=== PATIENT | female | born 1950 | race Caucasian/White ===

== ENCOUNTER 2016-07-28 09:26 | Inpatient (IN) | payer MEDICARE, MEDICAID ==
[~2016-07-28] VITALS: Ht 160 cm; Wt 61.1 kg
[2016-07-28] VITALS (18 sets, daily range): BP systolic 58–122; BP diastolic 41–76; PULSE 83–104; RESP 7–22; O2SAT 96–100
[~2016-07-28 09:26] MED LIST: ACET325T51 PO; ALEN70TA2 PO; AMLO5TAB2 PO; ASCO250T7 PO; CALC-460 PO; CARI350T PO; CEFU500T PO; CEPH500C PO; DOCU-41 PO; DULO60CA61 PO; ERGO2000 PO; FERR-83 PO; Gabapentin PO; HYDR-3797 PO; HYDR2TAB27 PO; METO25TA6 PO; MTH10T PO; OXYB5TAB PO; OXYC10TA8 PO; OXYC5TAB72 PO; SENN-133 PO; SIMV10TA4 PO; TRAZ-118 PO
--- NOTE | 2016-07-28 11:00 | NUR ---
admitted to 1010 66 yr old female c/o right flank pain radiating over abd. VSS, does not appear to be in distress but asking for pain meds. afebrile
[2016-07-28] MEDS ORDERED: fentaNYL-PF 50 mCg/mL 2 mL Inj ONE (11:42)
[2016-07-28] MEDS ORDERED: D5 0.45% NaCl + KCl 20 mEq/L 1,000 ML IV SCH (11:42)
[2016-07-28] MEDS ORDERED: Propofol 10,000 mCg/mL 20 mL Inj ONE (11:42)
[2016-07-28] MEDS ORDERED: Phenylephrine/NS-PF 100 mCg/mL 5 mL Syringe IVPUSH ONE (11:42)
[2016-07-28] MEDS ORDERED: Ondansetron 2 mg/mL 2 mL Inj ONE (11:42)
[2016-07-28] MEDS: Heparin 5,000 Unit/mL Inj SUBQ SCH ×2 (11:45→12:21)
[2016-07-28] MEDS ORDERED: Alum-Mag Hydrox-Simeth 30 mL Suspension PO PRN (11:45)
[2016-07-28] MEDS ORDERED: Polyethylene Glycol (PEG) 17 Gm Powder PO PRN (11:45)
[2016-07-28] MEDS ORDERED: Ondansetron 2 mg/mL 2 mL Inj IVPUSH PRN ×2 (11:45→15:45)
[2016-07-28] MEDS ORDERED: Morphine PCA 1 mg/mL 30 mL Inj IV PRN (12:10)
--- NOTE | 2016-07-28 13:29 | DRSVH ---
PROCEDURE: X-RAY CHEST ONE VIEW, PORTABLE ([id number]) INDICATIONS: PRE-OPERATIVE, needs ureteral stents TECHNIQUE: One view of the chest was acquired. COMPARISON: [facility], CR, XR CHEST 1VW (PORTABLE), 12/27/2015, 19:31. FINDINGS: Surgical changes and devices: None. Lungs and pleura: No pleural effusions or pneumothorax. Lungs are clear. Mediastinum: Mediastinal contours appear normal. Heart size is enlarged. Bones and chest wall: No suspicious bony lesions. Overlying soft tissues appear unremarkable. IMPRESSION: Cardiomegaly. No acute pulmonary findings. Dictated by: Rola Womack M.D. on 07/28/2016 at 13:27 Approved by: Rola Womack M.D. on 07/28/2016 at 13:27
[2016-07-28] MEDS ORDERED: 0.9% Sodium Chloride 1,000 ML IV SCH (14:05)
[2016-07-28] MEDS: 0.9% Sodium Chloride 1,000 ML IV SCH (14:12)
--- NOTE | 2016-07-28 15:00 | NUR ---
to OR for Cystoscopy with stents with Dr Car
[2016-07-28 15:08] LABS: BASOPHILS % (AUTO) 0.4 % (0-3); EOSINOPHILS % (AUTO) 0.7 % (0-5); MONOCYTES % (AUTO) 4.7 % (4-12); Mean Corpuscular Hemoglobin 30.4 pg (27.0-35.0); NEUTROPHILS % (AUTO) 88.5 % (40-74); Platelet Count 577 bil/L (150-400)
[2016-07-28 15:28] LABS: Magnesium 2.3 mg/dL (1.6-2.6)
[2016-07-28] MEDS ORDERED: Lactated Ringer's 500 ML IV PRN (15:44)
[2016-07-28] MEDS ORDERED: Lactated Ringer's 1,000 ML IV SCH (15:44)
--- NOTE | 2016-07-28 15:44 | PCM.HPANE ---
Patient Data Date of Service: July 28, 2016 Surgeon Admitting Provider:Aparna Ruffin DO Attending Provider:Abdi Hernandez Primary Care Physician:Rob Reeves MD Other Provider: Reason for Visit Uti/Acute Kidney Injury/Kidney Stone Ht/WT & BMI Height (Feet): 5 Height (Inches): 3.00 Weight (Kilograms): 61.100 Body Mass Index 23.87 Allergies Coded Allergies: carbamazepine (Verified Allergy, Unknown, 03/13/16) Past Anesthesia History Anesthesia History: Denies:: Anesthesia Reactions Diabetes History Hx Diabetes?: No MRSA MRSA: Yes (Distant history of) Medications Hypertension Medication: No Home Meds Incl Beta Criss: No Reported Medications Ascorbic Acid (Vitamin C)250 Mg Tab.yidv085 Mg PO TID Supplement 30 Days Ref 0 12/28/15 Trazodone 100 Mg Pbcirg450 Mg PO HS Insomnia Ref 0 12/28/15 Sennosides (Senna)8.6 Mg Tablet8.6 Mg PO DAILY 12/28/15 Duloxetine 60 Mg Capsule.dr2 Capsule PO DAILY Fibromyalgia Ref 0 12/28/15 Oxybutynin Chloride ER 5 Mg Tab.er.245 Mg PO DAILY URINARY FREQUENCY Ref 0 12/28/15 Ergocalciferol (Vitamin D2) (Vitamin D2)2,000 Unit Tablet2,000 Unit PO DAILY Supplement 12/28/15 Calcium Citrate/Vitamin D3 (Calcium Citrate with D Tablet)1 Each Tablet1 Each PO BID supplement 12/28/15 Acetaminophen 325 Mg Tablet2 Tab PO Q6 PRN For Mild Pain or Fever Ref 0 12/28/15 Methadone 10 Mg Tab10 Mg PO BID PAIN Ref 0 12/27/15 [Gabapentin] 1200 mg No Conflict Check1 Capsule PO TID Pain r/t Fibromyalgia 12/27/15 oxyCODONE 10 Mg Xdmezi56 Mg PO HS PRN For Pain Ref 0 12/27/15 Alendronate Sodium (Fosamax)70 Mg Ymhpti81 Mg PO QW 05/28/14 oxyCODONE 5 Mg Tablet5 Mg PO Q4H PRN For Pain 05/28/14 Ferrous Sulfate 325 Mg Utrdup368 Mg PO BID 05/28/14 Carisoprodol (Soma)350 Mg Jvkzso253 Mg PO Q6 PRN For Pain 05/28/14 Hydroxyzine Pamoate (HydrOXYzine Pamoate)25 Mg Radlpvc65 Mg PO HS 05/28/14 Simvastatin 10 Mg Msmjsu18 Mg PO DAILY 05/28/14 Discontinued Reported Medications Docusate Sodium (Colace)100 Mg Ebclmwf742-887 Mg PO DAILY PRN For Constipation Ref 0 12/28/15 Amlodipine 5 Mg Tablet5 Mg PO DAILY HIGH BLOOD PRESSURE 05/28/14 Metoprolol Tartrate 25 Mg Wrkchi36 Mg PO BID 05/28/14 Discontinued Scripts Cephalexin 500 Mg Yixeadi655 Mg PO TID #30 CAPSULE Ref 0 Prov:Otto Farris MD 03/14/16 Cefuroxime Axetil (Ceftin)500 Mg Pqbaxx046 Mg PO BID #4 TABLET Prov:Abel Causey 12/30/15 Hydromorphone (Dilaudid)2 Mg Tablet0.5 Mg PO Q6 PRN For Severe Pain #20 TABLET Prov:Abel Causey 12/30/15 History History of ENT Problems?: No HEENT History: Denies:: Cataracts Dysphagia Glaucoma Sinus Problem Denture Type: None Teeth Condition: Within Normal Limits Hx of Heart Problems?: Yes Cardiovascular History: Positive for:: Hypertension Denies:: Cardiac Surgery Chest Pain Congestive Heart Failure Edema Heart Murmur Irregular Heartbeat Pacemaker Thrombophlebitis Hx of Respiratory Problem?: No Respiratory History: Positive for:: Pneumonia (several times has PNA) Denies:: Asthma COPD Emphysema Oxygen Administration Tuberculosis Use of C-PAP Machine Hx Neurologic Problems?: Yes Neurological History: Positive for:: Dementia (Short term mem loss) Dizziness Headaches (Past history of migraines) Denies:: Alzheimer's Disease CVA Parkinson's Disease Seizures Hx of GI Problems?: Yes Hx of Problems?: Yes Genitourinary History: Positive for:: Kidney Stones (hx left Kidney stones, currently right kidney stone) Urinary Tract Infection Denies:: HX of Hemodialysis HX of Peritoneal Dialysis: No Female Hx: Denies:: Currently (hysterectomy) Endometriosis Pelvic Inflammatory Problems with Breasts? Skin History: Denies:: History Skin Disorders? Pressure Ulcers Hx Musculoskeletal Problems?: Yes Musculoskeletal History: Positive for:: Back Injury Joint Replacement (L elbow) Musculoskeletal Trauma Hx of Psycho/Social Problems?: Yes Psycho Social History: Positive for:: Anxiety Hx Depression Denies:: Bipolar Disorder Suicide Attempt Hx Surgeries?: Yes (hyst, appy, ) Hx Any Other Health Problems?: Yes Other History: Positive for:: Hospitalization Denies:: Cancer Thyroid Disease History Blood Transfusions: Positive for:: Accept Blood Products? Denies:: Blood Transfuse Reaction Blood Transfusions Hx Diabetes: No Other Pertinent History: Chronic pain/fibromyalgia Hx Alcohol Use: NoHx Substance Use: No Smoking Status: Current Every Day Smoker Have You Smoked inLast 12 mo: Yes Stop/Bang Treated for Sleep Apnea?: No Do You Have a CPAP Machine?: No S-Snoring: Do You Snore Loudly: No T-Tired: feel tired, fatigued: No O-Obsered: Observed not breath: No P-Blood Pressure: treated: Yes B- Body Mass Index > 35 kg/m2: No A- Age over 50: Yes N- Neck Large Circumference: No G- Gender Male: No KWASI Total Score: 1 KWASI Risk Assessment: Low Risk, <3 Yes Risk Assessment Category Category 1A: Patient has history of documented sleep apnea, and HAS NOT received any narcotic, sedative or anesthesia administration during this stay. Category 1B: Patient has history of documented sleep apnea, and HAS received any narcotic , sedative or anesthesia administration during this stay Category 2: Patient has SUSPECTED Obstructive Sleep Apnea, and HAS received any narcotic , sedative or anesthesia administration during this stay. Category 3: Patient has SUSPECTED Obstructive Sleep Apnea and HAS NOT received narcotic, sedative or anesthesia administration during this stay. Category 4: Outpatient in Procedural Areas with known sleep apnea or who screen positive for High Risk via the STOP/BANG questionnaire. Exam Exam Vital Signs Vital Signs Date Time Temp Pulse Resp B/P Pulse Ox O2 Delivery O2 Flow Rate FiO2 07/28/16 10:07 36.6 85 18 119/75 98 Room Air General Appearance: Alert, Oriented X3, Cooperative, No Acute Distress HEENT/AIRWAY: MP 2 Lungs: Clear to Auscultation, Normal Air Movement Heart: Exam Unremarkable, Regular Rate/Rhythm, No Murmurs/Rubs/Gallops Meds/Labs/Diagnostics Admission Meds Current Medications Potassium Chloride/Dextrose/ Sod Cl 1,000 ml @ 100 mls/hr Q10H IV Last administered on 07/28/16t 12:21; Start 07/28/16 at 11:42; Stop 07/28/16 at 14:06; Status DC Sodium Chloride (Normal Saline) 1,000 ml @ 100 mls/hr Q10H IV Last administered on 07/28/16t 14:12; Start 07/28/16 at 14:10 Labs Test 07/28/16 14:57 07/28/16 15:04 White Blood Count 22.4th/mm3 (3.8-10.1) Red Blood Count 3.19mil/mm3 (3.90-5.20) Hemoglobin 9.7g/dL (12.0-15.6) Hematocrit 28.4% (35.0-46.0) Mean Corpuscular Volume 89.0fL (81-100) Mean Corpuscular Hemoglobin 30.4pg (27.0-35.0) Mean Corpuscular Hemoglobin Concent 34.2% (32.0-37.0) Red Cell Distribution Width 17.6% (12.3-15.4) Platelet Count 577bil/L (150-400) Neutrophils (%) (Auto) 88.5% (40-74) Lymphocytes (%) (Auto) 4.1% (14-46) Monocytes (%) (Auto) 4.7% (4-12) Eosinophils (%) (Auto) 0.7% (0-5) Basophils (%) (Auto) 0.4% (0-3) Sodium Level 125mEq/L (134-144) Potassium Level 4.5mEq/L (3.5-5.2) Chloride Level 88mEq/L (97-108) Carbon Dioxide Level 19mmol/L (18-29) Blood Urea Nitrogen 20mg/dL (8-27) Creatinine 1.93mg/dL (0.57-1.00) Estimat Glomerular Filtration Rate 37mL/min (>59) Glucose Level 95mg/dL (60-99) Calcium Level 8.5mg/dL (8.5-10.1) Magnesium Level 2.3mg/dL (1.6-2.6) Total Bilirubin 0.2mg/dL (0.0-1.2) Aspartate Amino Transf (AST/SGOT) 12U/L (0-50) Alanine Aminotransferase (ALT/SGPT) 9U/L (0-32) Alkaline Phosphatase 211U/L (25-165) Total Protein 6.3g/dL (6.4-8.4) Albumin 3.3g/dL (3.4-5.0) Amylase Level 15U/L (28-100) Lipase 5U/L (13-60) Thyroid Stimulating Hormone (TSH) 0.752uIU/mL (0.450-4.500) Plan Impression Patient chart reviewed, patient interviewed and anesthestic plan with risks, benefits, and alternatives discussed, and informed consent obtained. NPO per Anesth. Guidelines: Yes ASA Physical Status: ASA2 Mod Systemic Disease Anesthetic Plan: GA Bene/Risks/Altern/Consents: Yes HP Complete Prior to Induction: Yes Cleve Schaffer MD July 28, 2016 15:44
[2016-07-28] MEDS ORDERED: MetoCLOpramide 5 mg/mL 2 mL Inj IVPUSH PRN (15:45)
[2016-07-28] MEDS ORDERED: hydrALAZINE 20 mg/mL Inj IVPUSH PRN (15:45)
[2016-07-28] MEDS ORDERED: Labetalol 5 mg/mL 4 mL Inj IV PRN (15:45)
[2016-07-28] MEDS ORDERED: fentaNYL-PF 50 mCg/mL 2 mL Inj IVPUSH PRN (15:45)
[2016-07-28] MEDS ORDERED: HYDROmorphone 1 mg/mL Inj IVPUSH PRN (15:45)
[2016-07-28] MEDS ORDERED: Lactated Ringer's 1,000 ML IV ONE (15:45)
[2016-07-28] MEDS: Ertapenem Inj 500 MG in 0.9% Sodium Chloride 50 ML IV SCH ×2 (15:45→16:00)
[2016-07-28] MEDS ORDERED: Phenylephrine 10,000 mCg/mL Inj IVPUSH PRN (15:45)
[2016-07-28 16:05] LABS: OSMOLALITY, URINE 114 mOs/kH2O (250-1200)
[2016-07-28] MEDS: EPHEDrine Sulfate 50 mg/mL Inj IVPUSH PRN ×2 (16:40→16:49)
[2016-07-28] MEDS ORDERED: Phenazopyridine 97.5 mg Tablet PO PRN (16:40)
--- NOTE | 2016-07-28 16:40 | PCM.SURGPO ---
Immediate Operative Note Date of Surgery: July 28, 2016 Pre Operative Diagnosis R ureteral calculus, R hydronephrosis, acute renal failure, sepsis Post Operative Diagnosis R ureteral calculus, R hydronephrosis, acute renal failure, sepsis, R pyonephrosis Procedure Cystoscopy and R ureteral stent placement Surgeon and Ip/Mosaic Technician Surgeon: Darryl Car MD Assistants: None Findings Cystoscopy revealed small mildly edematous and minimally erythematous areas scattered throughout the bladder (consistent with likely cystitis), no bladder tumors or calculi, and B/L ureteral orifices in normal position, with cloudy urine and debris in bladder. Urine drained from R renal collecting system was seen to be whitish, cloudy, and purulent. R hydronephrosis was seen. R ureteral JJ stent was placed. Complications There were no periprocedural complications identified. Surgical Specimen Removed: Yes Specimen sent to Pathology: No Surgical Specimen description: Urine Cx from R kidney sent to micro lab Anesthetic Administered: GA Grafts, Implants: Other (22cm x 6F R ureteral JJ stent (no string), 16F Lopez catheter to straight drainage) Output, Estimated Blood Loss: <5 Blood Admin during surgery: No Additional information Patient to be transferred to [facility] when stable. Recommend continuing broad- spectrum IV Abx and aggressive IVF resuscitation post-op. Patient will need treatment of R ureteral calculus and B/L renal calculi after her infection has completely resolved, which can be done as an outpatient. Darryl Car MD July 28, 2016 16:40
--- NOTE | 2016-07-28 16:43 | PCM.ANEP1 ---
Post Anesthesia Phase 1 PACU Phase 1 Assessment Date of Service: July 28, 2016 Vital Signs 91/51 97 6 100% FM Anesthetic Administered: GA Level of Alertness: Sleeping, hard to arouse Pain: No Nausea or Vomiting: No Cardiovascular Function and Hy: Yes Oxygen Delivery: Simple Mask Lungs: Clear to Auscultation, Normal Air Movement Complications: No Follow up Care: No Patient Instructions Provided: Yes Comments Blood pressure low. Suspect early urosepsis. Giving fluid, temporizing with pressors. Cleve Schaffer MD July 28, 2016 16:43
--- NOTE | 2016-07-28 16:47 | CONS ---
[address] [address] CONSULTATION REPORT PATIENT: PANCHO CRAVEN : 1950 MR#: [id number] ADMIT: 07/28/2016 JOB ID: [id number] DATE OF SERVICE: 07/28/2016 CHIEF COMPLAINT: Right flank and abdominal pain, right ureteral calculus, right hydronephrosis, acute renal failure. HISTORY OF PRESENT ILLNESS: I was asked by hospitalist, Dr. Aparna Ruffin, to evaluate this 66-year-old female for right flank and abdominal pain, right ureteral calculus, right hydronephrosis, and acute renal failure. The patient presented to the [facility] Department early this morning for right flank and right abdominal pain and was noted to be mildly hypotensive with blood pressure 88/66 on presentation to the emergency department, with blood pressure increasing to 116/63 after IV fluid hydration. The patient had laboratory tests significant for acute renal failure with creatinine 2.39, hyponatremia with sodium 122, hypochloremia with chloride of 89, and leukocytosis with white blood cell count 20.4. The patient had a CT scan of abdomen and pelvis, noncontrast, showing nonobstructing multiple bilateral renal calculi, right hydroureteronephrosis, and a 1.6 cm right proximal ureteral calculus, also with distended gallbladder, no gallstones, enlarged common bile duct, and no choledocholithiasis. The patient was transferred here to [facility] this morning under the care of hospitalist, Dr. Ruffin. The patient received a dose of ceftriaxone IV antibiotics at [facility] this morning. Patient presently reports right flank and right abdominal pain. The patient states that she has been having no fever, no chills. No nausea, no vomiting. The patient states she has been having pain over the last two weeks, with pain worsening recently. Patient reports dysuria which started recently, with no gross hematuria, no difficulty voiding. The patient reports significant fatigue. Of note, patient was previously seen by Dr. Kassandra Brothers and Dr. Kylah Humphries. The patient is status post cystoscopy and left ureteral stent placement on December 28, 2015, by Dr. Humphries for left ureteral calculus, left hydronephrosis, bilateral renal calculi, and UTI. Patient subsequently underwent cystoscopy, left ureteroscopy, Holmium laser lithotripsy, basket extraction of calculi fragments, and left ureteral stent change on January 11, 2016, by Dr. Humphries for left ureteral calculus and left renal calculi. Patient was last seen on January 30, 2016, by Dr. Brothers when she underwent cystoscopy and left ureteral stent removal in the office and was doing well postoperatively, with plan for the patient to follow up with Urology physician home care assistant, Ashley Cordova in few months with a KUB x-ray prior the appointment. However, patient did not follow up. Patient reports history of nephrolithiasis prior to 2015 and has had a cystoscopy and ureteral stent placements in the past. PAST MEDICAL HISTORY: Opioid addiction, osteoarthritis, history of T12 compression fracture, hyponatremia, fibromyalgia, chronic peripheral neuropathy, osteoporosis, depression, hypertension, gastroesophageal reflux disease, chronic pain, Raynaud's, endometriosis. PAST SURGICAL HISTORY: Cystoscopy and left ureteral stent placement, as per HPI. Cystoscopy, left ureteroscopy, Holmium laser lithotripsy, basket extraction of calculi fragments , and left ureteral stent placement, as per HPI. Total vaginal hysterectomy. Multiple orthopedic surgeries including right elbow surgeries and multiple left lower extremity surgeries. Appendectomy. MEDICATIONS: Present hospital medications: 1. Ertapenem IV which is being started. 2. Morphine sulfate IV CLAIM AUDITOR. 3. Carisoprodol p.r.n. 4. Maalox Plus p.r.n.. 5. Zofran p.r.n. 6. Senokot p.r.n. 7. MiraLAX p.r.n. 8. Tylenol p.r.n. ALLERGIES: CARBAMAZEPINE. SOCIAL HISTORY: History of smoking, no current alcohol use. Lives [place] [facility] [place]. FAMILY HISTORY: Noncontributory. REVIEW OF SYSTEMS: Constitutional: No fever, no chills. GI: No nausea, no vomiting. PHYSICAL EXAMINATION: Vital signs this morning: Afebrile, temperature 36.6 degrees Celsius. Heart rate 85, respiratory rate 18, BP 119/75. O2 saturation 98% on room air. General: Well-developed, well-nourished female in mild distress secondary to pain, lethargic. HEENT exam: Head normocephalic, atraumatic. Eyes: Extraocular muscles intact. Neck supple. Chest: No use of accessory muscles. Nonlabored respirations. No retractions. Abdomen: Soft, nondistended. Mild right flank tenderness. No palpable masses. No rebound, no guarding. Back: Positive for right costovertebral angle tenderness. Skin: Warm and dry. Neurologic exam: Sensation grossly intact to touch. Normal speech. Psych exam: Alert and oriented x3. Normal mood and affect. LABORATORIES: This morning at [facility], white blood cell count 20.4, hematocrit 26.4, platelets 464. Sodium 122, potassium 4.4, chloride 89, CO2 24, BUN 20, creatinine 2.39, glucose 96. Lactic acid 0.7, which is within normal limits. Laboratories from January 11, 2016: Creatinine normal at 0.87. Microbiology: December 29, 2014: Urine culture negative. December 29, 2015: Urine culture negative. IMAGING: CT scan as per HPI. ASSESSMENT: Obstructing 1.6 cm right proximal ureteral calculus, right hydronephrosis, sepsis, with right flank and right abdominal pain, with leukocytosis with white blood cell count 20.4, acute renal failure with creatinine 2.39, hyponatremia with sodium 122 and hypochloremia with chloride 89. Also with nonobstructing bilateral renal calculi. Risks, benefits, and alternatives of surgery, specifically cystoscopy and right ureteral stent placement, were discussed with patient. All questions were answered. Patient wishes to have surgery as recommended. Patient understands that it is not safe to treat right ureteral calculus at this time secondary to her significant infection. Will plan for treatment of right ureteral calculus and bilateral renal calculi as an outpatient in the future once her infection has completely cleared. PLAN: Recommend continuing IV antibiotics which is Ertapenem, as ordered by hospitalist, Dr. Ruffin. Recommend aggressive IV fluid resuscitation. Continue n.p.o. status. The plan is for surgery, specifically cystoscopy and right ureteral stent placement, today. Recommend following up on urine culture results from [facility]. Agree with IV CLAIM AUDITOR. GI findings on CT scan in the gallbladder and common bile duct to be evaluated by hospitalist and/or comedian industrial automation specialist. As per discussion with comedian industrial automation specialist, Dr. Siddiqi, patient is cleared from a GI standpoint to undergo anesthesia and cystoscopy and right ureteral stent placement. [facility]
--- NOTE | 2016-07-28 17:00 | NUR ---
returned to room 1010 from PACU alert, talking, appears much more comfortable, VSS, afebrile, has aviles draining purelant pink urine
--- NOTE | 2016-07-28 17:18 | DRSVH ---
PROCEDURE: X-RAY RETROGRADE UROGRAPHY INDICATIONS: STONE, RIGHT STENT PLACEMENT TECHNIQUE: 2 intraoperative fluoroscopic images acquired by the Urology service. COMPARISON: None. FINDINGS: Multiple intraoperative fluoroscopic views demonstrate double-J ureteral stent placement in a markedly hydronephrotic kidney. IMPRESSION: Fluoroscopic guidance of double-J ureteral stent placement. Dictated by: Rola Womack M.D. on 07/28/2016 at 17:15 Approved by: Rola Womack M.D. on 07/28/2016 at 17:16
--- NOTE | 2016-07-28 19:58 | CONS ---
[address] [address] CONSULTATION REPORT PATIENT: PANCHO CRAVEN : 1950 MR#: [id number] ADMIT: 07/28/2016 JOB ID: [id number] DATE OF SERVICE: 07/28/2016 REQUESTING PHYSICIAN: Dr. Ruffin. REASON FOR CONSULTATION: Management of hyponatremia and acute kidney injury. CHIEF COMPLAINT: Right flank pain. PRESENT ILLNESS: This is a 66-year-old lady with significant past medical history of chronic opioid use, alcoholism, hypertension, dyslipidemia, fibromyalgia, nephrolithiasis, who was transferred from [facility] for a higher level of care. The patient reported that she has history of congenital abnormality of urinary tract. She had the urological procedure done when she was a little. The patient reports she had history of bilateral nephrolithiasis. Last year in December she had cystoscopy, ureteroscopy, laser lithotripsy, and stent change. The patient stated that she started having right-sided flank pains approximately two weeks prior to the admission. The pain was severe, radiating to the right groin. The patient has been on narcotics for the fibromyalgia and arthritis. She also had history of multiple orthopedic surgeries. The patient lives in [facility]. She was brought to the [facility]. Her initial serum sodium was 122, creatinine of 2.39. CAT scan of the abdomen showed bilateral nephrolithiasis, severe right obstructive uropathy due to 1.1 cm proximal right ureteral calculus, dilated gallbladder. The patient was then transferred to the [facility] for a higher level of care. During my visit the patient remains in the moderate to severe pain. POLITICAL SCIENCE PROFESSOR was started. The patient was evaluated by urologist, Dr. Car. The patient will likely undergo urological procedure today. The repeat BMP here showed sodium of 125, chloride 88, BUN of 20 and creatinine of 1.93. She reports no history of fever, chills. No chest pain. No shortness of breath. No nausea, no vomiting. However, her appetite is poor over the past couple weeks. PAST MEDICAL HISTORY: Depression, fibromyalgia, hypertension, dyslipidemia, bilateral nephrolithiasis status post left ureteral stent placement, multiple orthopedic surgeries involving right elbow surgery and left lower extremity. FAMILY HISTORY: Positive for heart disease and COPD in the family. SOCIAL HISTORY: The patient lives at [facility]. She smokes tobacco. Denies usage of illicit drugs except prescription narcotics. ALLERGIES: CARBAMAZEPINE. MEDICATIONS: 1. Vitamin C. 2. Trazodone. 3. Senna. 4. Duloxetine. 5. Oxybutynin. 6. Vitamin D2. 7. Calcium citrate with vitamin D3. 8. Tylenol. 9. Methadone. 10. Gabapentin. 11. Oxycodone. 12. Alendronate. 13. Ferrous sulfate. 14. Soma. 15. Hydroxyzine. 16. Simvastatin. Vitals: Temperature 36.6, pulse 85, respiratory rate 18, blood pressure 119/75, O2 sat 98% on room air. General appearance: Awake, alert, chronically ill looking, not in acute distress, in moderate pain. HEENT: Mild pallor. No jaundice. No JVD. No lymphadenopathy. No thyroid enlargement. Dry mucous membranes. PERRLA. Heart: Regular rhythm. Normal S1, S2. No murmurs, rubs, or gallops. Lungs: Clear to auscultation bilaterally. No wheezing. No rhonchi. Abdomen soft, active bowel sounds. Nontender. Nondistended. No hepatosplenomegaly. Extremities: No edema, cyanosis, or clubbing of fingers. : Positive right CVA tenderness. LABORATORY: WBC 22.4, hemoglobin 9.7, sodium 125, potassium 4.5, chloride 88, bicarb 19, BUN 20, creatinine 1.93. Albumin 3.3. Amylase 15, lipase 5. ASSESSMENT: 1. Acute kidney injury likely due to obstructive uropathy. CAT scan showed severe right hydronephrosis, 1.1 cm at the right ureter. Urology is consulted. 2. Hyponatremia in the setting of acute kidney injury. The etiology is due to kidney failure and possibly poor oral intake. The patient has had poor appetite over the past two weeks. Recommend normal saline at 100 cc/hour. 3. Will also order a serum osmo, urine osmo, and urine sodium. 4. Chronic narcotics use. 5. Fibromyalgia. 6. Depression. 7. Hypertension. Plan: Start NS 100 ml/hr. Avoid nephrotoxins. Adjust medication per eGFR. Repeat BMP at 10 pm. Pending urological procedure today. Thank you for the consultation. We will monitor along with you. [facility]
--- NOTE | 2016-07-28 21:51 | PCM.HPMED ---
Subjective Date of Service July 28, 2016 Primary Provider: Admitting Physician: Aparna Ruffin DO Primary Care Physician: Rob Reeves MD Attending Physician: Abdi Hernandez Admit Status: Direct Admit Chief Complaint: Abdominal pain, ureterolithiasis, choledocholithiasis, hypernatremia, acute renal failure, ileus or enterocolitis History of Present Illness: This is a 66-year-old pleasant female with past medical history of chronic pain , chronic hyponatremia, chronic alcoholism from which she has recovered, anemia , depression, fibromyalgia, several bone fractures secondary to fall, Pa's , hyperlipidemia, hypertension, insomnia is presenting as a direct admit from [facility]. Patient states that she has been ill for about a week to 2 weeks at her [facility] (. She is under the care of Drs. Pike ) states that she has been having runny stools, abdominal pain that started 10 that is apparently in the right flank and sometimes spreads across to the abdomen and nausea for a week. She states that she has no hematochezia or hematemesis. She states that she uses a walker sometimes she walks sometimes she uses a cane as needed she had several colonoscopies as her father had of colon cancer age 52, she says she herself had some colon polyps removed at her last colonoscopy, which was 4-5 years ago. she thinks her stool is runny and black her last bowel movement at that [facility] prior to arrival here. Lab work at [facility] showed elevated white count 20.4 hemoglobin of 9.2 sodium 122 BUN 20 creatinine 2.39 GFR is 21 her alkaline phosphatase is elevated however her other LFT and lipase are within normal CTA of abdominopelvic without showed multiple stones, 1.1 cm ureteral stone that at right ureteral proximally she is also noted to have distended gallbladder without stones, choledocholithiasis, CBD dilation. She was was noted to have abdominal ileus. Troponin was negative and EKG showed nonspecific abnormalities. Urine showed concern for infection. Urologist Dr. Car was contacted prior to her arrival from [facility]. Allergies Coded Allergies: carbamazepine (Verified Allergy, Unknown, 03/13/16) PMH Chronic pain, chronic hyponatremia, chronic alcoholism from which she has recovered, anemia, depression, fibromyalgia, several bone fractures secondary to fall, Pa's, hyperlipidemia, hypertension, insomnia Surgical History Several surgical repairs for fractures, right ureteral stent in [place] when she was 4 years old Family History Mother, colon COPD, heart disease Data: Heart disease, colon cancer at age 53 Social History Hx Alcohol Use: Yes Hx Substance Use: No Hx Tobacco Use: Yes (former smoker, she said she used to smoke half-pack per day up until 1-2 years ago when she quit) Smoking Status: Current Every Day Smoker Living Arrangement: [facility] Exam Vital Signs Vital Sign - Last Date Time Temp Pulse Resp B/P Pulse Ox O2 Delivery O2 Flow Rate FiO2 07/28/16 10:07 36.6 85 18 119/75 98 Room Air Exam General: NAD, laying in bed, some what can appearing HEENT: NCAT, Eyes: Sublimity conjunctivae. No ptosis, PERRL Neck: No masses, trachea midline, no thyromegaly Lungs: CTA with normal respiratory effort, no crackles or wheezes CV: RRR, soft systolic murmur GI: Soft, flat with no hepatosplenomegaly. She states that she has right flank pain and diffuse abdominal pain. She rates her right flank pain as the highest followed by pain over her epigastrium MSK: Normal gait and station, no digital cyanosis, weaker left lower extremity Skin: Warm and dry. No rash, lesions or ulcers Psych: A&O X3, with appropriate affect Lab and Diagnostics Labs Laboratory Tests Test 07/28/16 14:57 07/28/16 15:04 White Blood Count 22.4th/mm3 (3.8-10.1) Red Blood Count 3.19mil/mm3 (3.90-5.20) Hemoglobin 9.7g/dL (12.0-15.6) Hematocrit 28.4% (35.0-46.0) Mean Corpuscular Volume 89.0fL (81-100) Mean Corpuscular Hemoglobin 30.4pg (27.0-35.0) Mean Corpuscular Hemoglobin Concent 34.2% (32.0-37.0) Red Cell Distribution Width 17.6% (12.3-15.4) Platelet Count 577bil/L (150-400) Neutrophils (%) (Auto) 88.5% (40-74) Lymphocytes (%) (Auto) 4.1% (14-46) Monocytes (%) (Auto) 4.7% (4-12) Eosinophils (%) (Auto) 0.7% (0-5) Basophils (%) (Auto) 0.4% (0-3) Sodium Level 125mEq/L (134-144) Potassium Level 4.5mEq/L (3.5-5.2) Chloride Level 88mEq/L (97-108) Carbon Dioxide Level 19mmol/L (18-29) Blood Urea Nitrogen 20mg/dL (8-27) Creatinine 1.93mg/dL (0.57-1.00) Estimat Glomerular Filtration Rate 37mL/min (>59) Glucose Level 95mg/dL (60-99) Calcium Level 8.5mg/dL (8.5-10.1) Magnesium Level 2.3mg/dL (1.6-2.6) Total Bilirubin 0.2mg/dL (0.0-1.2) Aspartate Amino Transf (AST/SGOT) 12U/L (0-50) Alanine Aminotransferase (ALT/SGPT) 9U/L (0-32) Alkaline Phosphatase 211U/L (25-165) Total Protein 6.3g/dL (6.4-8.4) Albumin 3.3g/dL (3.4-5.0) Amylase Level 15U/L (28-100) Lipase 5U/L (13-60) Thyroid Stimulating Hormone (TSH) 0.752uIU/mL (0.450-4.500) Urine Osmolality 114mOs/kH2O (250-1200) Urine Random Sodium 13mEq/L Osmolality 268 (275-300) Microbiology 07/28/16 Blood Culture, Received Pending Assessment & Plan This is a 66-year-old female with chronic pain (for which she is on methadone, oxycodone, Soma) presenting with multiple problems from an outside hospital. It appears that her ureteral stone may be causing her acute renal injury, though her choledocholithiasis cannot be ignored. Unclear why she is hyponatremic could be due to chronic alcohol abuse versus poor nutrition among other reasons. Leukocytosis could be secondary to UTI and pyelonephritis. Assessment #1 ureterolithiasis, present on admission -- Dr. Car is contacted and he is aware. Plans to take patient to OR this afternoon for a stent -- Hydrate with normal saline 100 mL per hour per nephrology -- The appreciated urology consultation Assessment #2 acute kidney injury: Appears to be postrenal obstruction versus dehydration, present on admission -- Nephrology is consulted -- They agree with need for stent placement -- Normal saline 100 mL/h Assessment #3 hyponatremia, likely chronic worsened acutely: Likely due to nutrition versus dehydration, present on admission -- Follow-up lab here showed sodium levels of 125, follow-up lab at midnight is ordered -- Urine sodium, urine osmolality, serum osmolality, TSH, cortisol, urine sodium -- Nephrology consult: The appreciate their recommendations Assessment #4 choledocholithiasis: Present admission, present on admission -- MRCP is ordered., We have no ERCP support this week end -- GI specialist Dr. donahue contacted, he is aware we will see the patient tomorrow -- Continue hydration, clear liquid diet -- She may need an ERCP, related transfer -- Start her on Invanz renally dosed -- CBC, CMP daily, lipase daily Assessment #5 Ileus or enterocolitis, present on admission: Likely due to pain medications -- Nothing by mouth diet -- Control nausea Assessment #6 chronic pain:, Chronic -- Patient is put on a morphine pump as cannot do by mouth pain medications -- She can have Soma however, because we do not have this on our formulary Assessment #7 hypertension, chronic -- She has no home meds -- We will continue to monitor Assessment #8 hyperlipidemia, chronic -- Continue home medication Zocor Assessment #9 osteoporosis, chronic -- Continue medication Fosamax CODE STATUS: Full code Alternate decision-maker: Avila Brown [phone] Pain Evaluation: Adequate Pain Control VTE Prophylaxis: Sub-Q Heparin (Unfractionated) Resuscitation Status: CPR: Attempt Resuscitation Time spent One hour Aparna Ruffin DO July 28, 2016 13:49
[2016-07-29] VITALS (8 sets, daily range): BP systolic 98–115; BP diastolic 62–69; PULSE 102–110; RESP 14–20; O2SAT 94–100
[2016-07-29] MEDS: 0.9% Sodium Chloride 1,000 ML IV SCH ×3 (03:11→14:23)
--- NOTE | 2016-07-29 03:37 | NUR ---
Pain Pt. is on AGILE COACH morphine. Education given on AGILE COACH pump. Pt. verbalized understanding. Will continue to monitor.
[2016-07-29 05:18] LABS: Mean Corpuscular Hemoglobin 30.6 pg (27.0-35.0); Mean Corpuscular Volume 89.8 fL (81-100)
[2016-07-29] MEDS ORDERED: Ertapenem Inj 500 MG in 0.9% Sodium Chloride 50 ML IV SCH (08:30)
[2016-07-29] MEDS ORDERED: BISA10SU61 RC (09:10)
[2016-07-29] MEDS ORDERED: HYDR25CA PO (09:10)
[2016-07-29] MEDS ORDERED: NA P133E23 RC (09:10)
[2016-07-29] MEDS ORDERED: DOCU-41 PO (09:10)
[2016-07-29] MEDS ORDERED: POLY17PO6 PO (09:10)
[2016-07-29] MEDS ORDERED: CHLO15MO3 MM (09:10)
[2016-07-29] MEDS ORDERED: DEXT1DRO8 BOTH_EYES (09:10)
--- NOTE | 2016-07-29 11:08 | PCM.CHPMED ---
Subjective Date of Service: July 29, 2016 Primary Physician: Admitting Physician: Aparna Guzman DO Primary Care Physician: Rob Reeves MD Attending Physician: Abdi Hernandez Chief Complaint: Chief Complaint: Abdominal pain with ureterolithiasis History of Present Illness: 66-year-old female with anemia, depression, fibromyalgia, Raynaud's, hypertension, chronic pain, chronic hyponatremia, and numerous bone fractures who presented from [facility] due to illness for the past 2 weeks at [facility]. She states that she been having runny stools, bowel pain that localizes more to the right flank with some radiation across the abdomen, as well as nausea for the past week. She denies any hematochezia or hematemesis. At [facility] patient had an elevated alkaline phosphatase and liver function and lipase were within normal limits. CTA revealed a ureteral stone 1.1 cm as well as numerous other stones, as well as a distended gallbladder without identifiable stones, however choledocholithiasis was seen along with common bile duct dilation. Patient underwent intervention with Dr. Car who removed the stone from the ureter. Patient states that she feels much much better since the intervention. Patient states that her right upper quadrant is still painful and currently she does not have much of an appetite. Review of systems negative. Of note, patient does have a history of colon cancer with her mother reporting colon cancer age 52. GI was asked to consult due to possible choledocholithiasis and common bile duct dilation. Review of Systems: See history of present illness PMH Past Medical History Chronic pain, chronic hyponatremia, chronic alcoholism from which she has recovered, anemia, depression, fibromyalgia, several bone fractures secondary to fall, Pa's, hyperlipidemia, hypertension, insomnia Surgical History Several surgical repairs for fractures, right ureteral stent in [place] when she was 4 years old Allergies: Coded Allergies: carbamazepine (Verified Allergy, Unknown, 03/13/16) Family History Family History Mother, colon COPD, heart disease Data: Heart disease, colon cancer at age 52 Social History Hx Alcohol Use: YesHx Substance Use: NoHx Tobacco Use: Yes (former smoker, she said she used to smoke half-pack per day up until 1-2 years ago when she quit) Smoking Status: Current Every Day Smoker Living Arrangement: Longterm Facility Exam Vital Signs Vital Sign - Last Date Time Temp Pulse Resp B/P Pulse Ox O2 Delivery O2 Flow Rate FiO2 07/29/16 08:35 16 99 07/29/16 06:40 36.4 106 107/62 Room Air 07/28/16 16:45 10 Intake and Output 07/28/16 07/28/16 07/29/16 Cumulative From/Thru 15:00 23:00 07:00 07/28/16 15:22 - 07/29/16 05:05 Intake Total 750 ml 1055 ml 1805 ml Output Total 405 ml 405 ml Balance 345 ml 1055 ml 1400 ml Intake Oral 0 ml 0 ml IV Total 750 ml 1055 ml 1805 ml Output Urine Total 400 ml 400 ml Estimated Blood Loss 5 ml 5 ml # Voids 1 1 Additional Information: Gen.: Patient awake and alert and in no acute distress HEENT; neck is supple Cardio: Regular rate and rhythm Respiratory: CTA bilaterally Abdomen: Soft, pain with a positive Richardson sign of the right upper quadrant; patient also has nausea on abdominal palpation. No guarding rebound or firmness noted. Pt has bowel sounds. Skin: Warm and dry no rashes Psych: Appropriate mood and affect Lab and Diagnostics Result Diagram: 07/29/16 0500 07/29/16 0500 Assessment & Plan Assessment Problem list: Probable choledocholithiasis with enlarged gallbladder and common bile duct AKA secondary to obstructive uropathy status post intervention for uterine lithiasis Cystitis Assessment/plan We recommend the patient undergo repeat of lipase as well as obtaining an MRCP for evaluation of the common bile duct stone with abd pain. Abd pain could be due to the stone but with lipase elevation and dilated ducts is concerning. Patient will also do well to have a CT of the abdomen with contrast per evaluation of elevated lipase that is trending up today. In the meantime patient should receive fluid. If the MRCP comes back as positive for choledocholithiasis we recommend emergent transfer for intervention as we are unable to do this here at this time. The patient still here we can consider additional diagnostics. I have seen and examined the patient with the resident and agree with above. Thank you for allowing us to participate in the care of this patient Addendum: MRCP shows Enlarged common bile duct with mild intrahepatic biliary dilatation and enlargement of the gallbladder (no cholelithiasis). This appearance is nonspecific, but may be seen in the setting of acute or chronic biliary obstruction and clinical correlation is recommended. 2. 6 mm filling defect within the common bile duct is only apparent on a few imaging sequences and may be related to flow artifact. However, choledocholithiasis cannot be excluded. The need for further evaluation utilizing ERCP may be determined clinically. Findings discussed with the hospitalist service Dr Guzman and receommended immediate transfer to [facility] facility [facility] in light of lipase elevation. Problems: Pain Evaluation: Adequate Pain Control VTE Prophylaxis: Sub-Q Heparin (Unfractionated) Resuscitation Status: CPR: Attempt Resuscitation Eric Ernandez DO July 29, 2016 11:08 Rudolph Siddiqi MD July 29, 2016 14:12
--- NOTE | 2016-07-29 11:46 | PCM.PNSURG ---
Subjective Date of Service: July 29, 2016 Date of Service: July 29, 2016 Subjective: Patient reports improved R flank and R abdominal pain, no nausea, no vomiting, improved fatigue. Objective Vital Sign- Last 8 Hours Date Time Temp Pulse Resp B/P Pulse Ox O2 Delivery O2 Flow Rate FiO2 07/29/16 08:35 16 99 07/29/16 06:40 36.4 106 20 107/62 100 Room Air 07/29/16 05:06 16 94 Intake and Output- Last 8 Hour 07/29/16 Cumulative From/Thru 07:00 07/28/16 15:22 - 07/29/16 05:05 Intake Total 1055 ml 1805 ml Output Total 405 ml Balance 1055 ml 1400 ml Intake Oral 0 ml IV Total 1055 ml 1805 ml Output Urine Total 400 ml Estimated Blood Loss 5 ml # Voids 1 Lopez catheter urine output: 1100ml last 8hr. shift General: Alert, Oriented X3, Cooperative, No Acute Distress Neck: Supple Lungs: Normal Air Movement Abdomen: Soft, Non-distended, Other (mild R flank and R abdominal tenderness, no rebound or guarding) Neuro: Normal Speech, Sensation Intact Catheters: Urethral 2 Way Lopez (in place, draining clear yellow urine) Result Diagram: 07/29/16 0500 07/29/16 0500 Lab & Micro Results: 07/28/16: urine Cx (intra-op, from R kidney) pending; blood Cx pending Assessment & Plan Impression R ureteral calculus, B/L renal calculi, R hydronephrosis, and sepsis, POD #1 s/ p cystoscopy and R ureteral stent placement, afebrile, with resolved hypotension and mild tachycardia, with labs this AM showing WBC mildly decreased to 20.9, Cr decreased to 1.74, Na increased to 130, and Cl increased to 95, with improved pain, with good urine output Problems: Plan Recommend continuing broad-spectrum IV Abx and IVF hydration Continue Lopez catheter to straight drainage for now (Lopez catheter likely can be removed tomorrow) Recommend following up on urine culture results from [facility] F/U urine Cx and blood Cx Patient will need treatment of R ureteral calculus and B/L renal calculi after her infection has completely resolved, which can be done as an outpatient Case discussed with hospitalist Dr. Ruffin VTE Prophylaxis: Sub-Q Heparin (Unfractionated) Resuscitation Status: CPR: Attempt Resuscitation Darryl Car MD July 29, 2016 11:46 VTE Prophylaxis: Sub-Q Heparin (Unfractionated) Resuscitation Status: CPR: Attempt Resuscitation Darryl Car MD July 29, 2016 11:46
[2016-07-29] MEDS ORDERED: Meropenem Inj 1,000 MG in IV Premix 1 EACH IV SCH (12:45)
--- NOTE | 2016-07-29 13:38 | DRSVH ---
PROCEDURE: MR ABDOMEN MRCP INDICATIONS: choledocholithiasis on ct TECHNIQUE: Coronal HASTE through the abdomen, axial 2-D FLASH in- and [id number], and breath-hold T2 FSE with fat saturation through the biliary system and pancreas. Oblique coronal and axial thin-slice HASTE, radial thick-slab HASTE centered on the extrahepatic bile ducts. Intravenous secretin: Not requested. COMPARISON: [facility], CT, CT ABD PELVIS WO CON, 07/28/2016, 6:16. FINDINGS: Image quality: Diagnostic. Liver: The liver is normal in size. No focal liver lesions are identified. No significant signal d ropout is evident on the opposed phase images compared to the in phase images to suggest hepatic stea tosis. No definite liver lesions are evident. Mild intrahepatic biliary dilatation is present. Chang w-voids within the portal vein and the hepatic veins suggest that these vessels are patent. The gall bladder is enlarged. No definite gallstones are appreciated within the gallbladder. The common bile duct is enlarged and measures up to approximately 10 mm in diameter. Within the region of the priya hepatis of the common bile duct, there is a 7 mm filling defect identified. However, this filling d efect is not visualized on all of the imaging sequences and could potentially be related to flow thao fact or motion artifact. The distal aspect of the common bile duct is otherwise unremarkable. Other solid organs: The main pancreatic duct is slightly enlarged and measures up to approximately 4 mm in diameter. Mild edema about the pancreas appears to be present. However, the pancreas is not w ell evaluated on this exam. There continues to be hydronephrosis of the right kidney. However, the degree of hydronephrosis appears to be less prominent on the current study compared to the prior exam . The patient's known right proximal ureteral calculus is not evident, which may be related to diffe rences in imaging modalities. The adrenals are not enlarged. The spleen is normal in size. Nodes and vessels: No retroperitoneal or mesenteric adenopathy by size criteria. Aorta and inferior vena cava are normal in size. Atherosclerotic irregularity of the abdominal aorta is present. Bowel and peritoneum: There is a small hiatal hernia. Unenhanced bowel loops are normal in caliber. No free fluid. Lung bases: Trace bilateral pleural effusions are present there appears to be a small pericardial eff usion. Bones and soft tissues: No ventral hernias. Bone marrow is of normal overall signal. IMPRESSION: 1. Enlarged common bile duct with mild intrahepatic biliary dilatation and enlargement of the gallbl adder (no cholelithiasis). This appearance is nonspecific, but may be seen in the setting of acute o r chronic biliary obstruction and clinical correlation is recommended. 2. 6 mm filling defect within the common bile duct is only apparent on a few imaging sequences and m ay be related to flow artifact. However, choledocholithiasis cannot be excluded. The need for furth er evaluation utilizing ERCP may be determined clinically. 3. Mild edema about the pancreas is nonspecific and may be related to the patient's known proximal r ight ureteral calculus. Please correlate clinically to exclude pancreatitis. 4. Hydronephrosis of the right kidney is less prominent on the current exam. Dictated by: Sumeet Johnson M.D. on 07/29/2016 at 12:16 Approved by: Sumeet Johnson M.D. on 07/29/2016 at 12:37
--- NOTE | 2016-07-29 13:58 | OP ---
[address] [address] OPERATIVE REPORT PATIENT: PANCHO CRAVEN : 1950 MR#: [id number] ADMIT: 07/28/2016 JOB ID: [id number] DATE OF SURGERY: 07/28/2016 SURGEON: Darryl Car MD PREOPERATIVE DIAGNOSIS(ES): Right ureteral calculus, right hydronephrosis, acute renal failure, sepsis. POSTOPERATIVE DIAGNOSIS(ES): Right ureteral calculus, right hydronephrosis, acute renal failure, sepsis, right pyonephrosis. PROCEDURE: Cystoscopy and right ureteral stent placement. SENIOR PRODUCER: None. ANESTHESIA: General. ESTIMATED BLOOD LOSS: Less than 5 mL. SPECIMENS: Urine culture from right kidney sent to microbiology lab. DRAINS: A 22 cm x 6-Portuguese right ureteral double-J stent. A 16-Portuguese Lopez catheter to straight drainage. COMPLICATIONS: None. CONDITION: Stable. FINDINGS: Cystoscopy revealed small, mildly edematous and minimally erythematous areas scattered throughout the bladder (consistent with likely cystitis), no bladder tumors or calculi, and bilateral ureteral orifices in normal position, with cloudy urine and debris in the bladder. Urine drained from the right renal collecting system was seen to be whitish, cloudy, and purulent. Right hydronephrosis was seen. Right ureteral double-J stent was placed. INDICATIONS: The patient is a 66-year-old female with an obstructing, 1.6 cm right proximal ureteral calculus, right hydronephrosis, with right flank and right abdominal pain, with leukocytosis, acute renal failure, hyponatremia, and hypokalemia, with sepsis, also with nonobstructing bilateral renal calculi. The patient now presents for cystoscopy and right ureteral stent placement. PROCEDURE: Patient was brought to the operating room and placed supine on the operating room table. The patient was given ertapenem IV antibiotics. General anesthesia was administered. The patient was brought down into dorsal lithotomy position. The patient was prepped and draped in standard sterile surgical fashion. A 22-Portuguese rigid cystoscope was placed through the urethra and into the bladder without difficulty. Cystoscopy revealed small mildly edematous and minimally erythematous areas scattered throughout the bladder (consistent with likely cystitis), no bladder tumors or calculi, and bilateral ureteral orifices in normal position, with cloudy urine and debris in the bladder. An angle- tip UltraTrack guidewire was passed into the right ureteral orifice and passed up the right ureter and able to be passed past the right ureteral calculus and into the right renal pelvis. A 5-Portuguese open-ended catheter was passed over the guidewire, up the right ureter, and into the right renal pelvis. The guidewire was removed. Urine was drained from the right renal collecting system, which was seen to be whitish, cloudy, and purulent, and this urine was sent to microbiology lab as urine culture from right kidney. After all of the urine was drained from right renal collecting system, a small amount of contrast was instilled into the right renal collecting system to illuminate the right renal collecting system to aid in stent placement. Right hydronephrosis was seen. The guidewire was passed through the open-ended catheter up the right ureter into the right renal pelvis. Open-ended catheter was removed. A 22 cm x 6-Portuguese ureteral double-J stent, with the stent string removed prior to stent placement, was passed over the guidewire, through the cystoscope, and passed up the right ureter and placed so that the proximal pigtail was located in the right renal pelvis and the distal pigtail was located in the bladder. Guidewire was removed. Correct positioning of the stent was confirmed both fluoroscopically and under direct visualization using the cystoscope. Good efflux of contrast and cloudy, whitish , purulent urine was seen draining from the distal end of the stent into the bladder, further confirming correct stent positioning. Thus, right ureteral double-J stent was placed. Cystoscope was removed from the patient. A 16-Portuguese Lopez catheter was placed through the urethra into the bladder without difficulty. Lopez catheter balloon was inflated with 10 mL sterile water. Lopez catheter was placed to straight drainage. Skin was cleaned and dried. The patient was placed in supine position. The patient was awakened from general anesthesia and transferred to the recovery room in stable condition. The patient tolerated the procedure well. Plan is for the patient to be transferred to [facility] when stable. Recommend continuing broad-spectrum IV antibiotics and aggressive IV fluid resuscitation postoperatively. The patient will need treatment of right ureteral calculus and bilateral renal calculi in the future after her infection has completely resolved, which can be done as an outpatient. MARCIN
--- NOTE | 2016-07-29 14:43 | NUR ---
Social Work: Update DAP: Pt anticipated to be transferred to a different hospital per MD in morning rounds. Pt does come from [facility]. SW to follow-up tomorrow for initial assessment if pt does not transfer. MORGAN Renee
[2016-07-29] MEDS ORDERED: [UNRECOGNIZED DRUG - OTHER] IV (16:10)
[2016-07-29] MEDS ORDERED: MERO1VIA IV (16:11)
[2016-07-29] MEDS ORDERED: ONDA4VIA27 IVPUSH (16:12)
--- NOTE | 2016-07-29 16:15 | PCM.DIMED ---
Discharge Instructions Date of Service July 29, 2016 Dates of Hospitalization July 28, 2016 at 10:15 Discharge Diagnosis Discharge Diagnosis Choledocholithiasis, pancreatitis, Acute renal injury due to ureterolithiasis and pyelonephritis, Ileus, Hyponatremia, chronic pain Diet Other (NPO) Patient Instructions Patient is on NSS 100 cc/hr, meropenem 1g Q12H, Protonix IV 40 mg QDAC, morphine SURG PHYSICIAN ASST for pain control with standard settings of 1 mg pt demand dose , max of 6 mg/hr, lock out time 10 min, physician loading boluses 2 mg Q10min x 3 Q4HPRN for pain control, zofran IV for nausea control. Please note that paitent's home meds are currently held. These are showing up as stopped on the reconciliation but they ar einfact, held. Patient's urine cx from [facility] are requested from 07/28, are pending at this time. Follow-up plan As determined by the receiving hospital Aparna Ruffin DO July 29, 2016 16:15
--- NOTE | 2016-07-29 16:24 | PCM.DC.MED ---
Discharge Summary Date of Service July 29, 2016 Dates of Hospitalization Date of Hospital Admission July 28, 2016 at 10:15 Date of Discharge: July 29, 2016 Providers: Admitting Physician: Aparna Hudson DO Primary Care Physician: Rob Reeves MD Attending Physician: Abdi Hernandez Diagnosis at Time of Discharge Diagnosis at Time of Discharge Choledocholithiasis, pancreatitis, Acute renal injury due to ureterolithiasis and pyelonephritis, Ileus, Hyponatremia, chronic pain, leukocytosis Consultations Nephrology, GI, Urology Procedures XRay, CTs & MRIs Date of Service: 07/29/16 0800 PROCEDURE: MR ABDOMEN MRCP IMPRESSION: 1. Enlarged common bile duct with mild intrahepatic biliary dilatation and enlargement of the gallbladder (no cholelithiasis). This appearance is nonspecific, but may be seen in the setting of acute or chronic biliary obstruction and clinical correlation is recommended. 2. 6 mm filling defect within the common bile duct is only apparent on a few imaging sequences and may be related to flow artifact. However, choledocholithiasis cannot be excluded. The need for further evaluation utilizing ERCP may be determined clinically. 3. Mild edema about the pancreas is nonspecific and may be related to the patient's known proximal right ureteral calculus. Please correlate clinically to exclude pancreatitis. 4. Hydronephrosis of the right kidney is less prominent on the current exam. Dictated by: Sumeet Johnson M.D. on 07/29/2016 at 12:16 Approved by: Sumeet Johnson M.D. on 07/29/2016 at 12:37 Patient Name: PANCHO CRAVEN PROCEDURE: X-RAY RETROGRADE UROGRAPHY INDICATIONS: STONE, RIGHT STENT PLACEMENT IMPRESSION: Fluoroscopic guidance of double-J ureteral stent placement. Dictated by: Rola Womack M.D. on 07/28/2016 at 17:15 Approved by: Rola Womack M.D. on 07/28/2016 at 17:16 PROCEDURE: X-RAY CHEST ONE VIEW, PORTABLE ([id number]) INDICATIONS: PRE-OPERATIVE, needs ureteral stents IMPRESSION: Cardiomegaly. No acute pulmonary findings. Dictated by: Rola Womack M.D. on 07/28/2016 at 13:27 Approved by: Rola Womack M.D. on 07/28/2016 at 13:27 Invasive Procedures Right ureteral stent placement on 5/6 AM Brief History 66-year-old female with anemia, depression, fibromyalgia, Raynaud's, hypertension, chronic pain, chronic hyponatremia, and numerous bone fractures who presented from [facility] due to illness for the past 2 weeks at [facility]. She states that she been having runny stools, bowel pain that localizes more to the right flank with some radiation across the abdomen, as well as nausea for the past week. She denies any hematochezia or hematemesis. At [facility] patient had an elevated alkaline phosphatase and liver function and lipase were within normal limits. CTA revealed a ureteral stone 1.1 cm as well as numerous other stones, as well as a distended gallbladder without identifiable stones, however choledocholithiasis was seen along with common bile duct dilation. Patient underwent intervention with Dr. Car who removed the stone from the ureter. Patient states that she feels much much better since the intervention. Patient states that her right upper quadrant is still painful and currently she does not have much of an appetite. Review of systems negative. Of note, patient does have a history of colon cancer with her mother reporting colon cancer age 52. GI was asked to consult due to possible choledocholithiasis and common bile duct dilation. Hospital Course This is a 66-year-old female with chronic pain (for which she is on methadone, oxycodone, Soma) presenting with multiple problems from an outside hospital. It appears that her ureteral stone may be causing her acute renal injury, though her choledocholithiasis cannot be ignored. Unclear why she is hyponatremic could be due to chronic alcohol abuse versus poor nutrition among other reasons. Leukocytosis could be secondary to UTI and pyelonephritis. Assessment #1 ureterolithiasis, present on admission -- Dr. Car is contacted and he is aware. Plans to take patient to OR this afternoon for a stent -- Hydrate with normal saline 100 mL per hour per nephrology -- We appreciated urology consultation -- Patient is status post ureteral stent placement postop day #1 -- Assessment #2 acute kidney injury: Appears to be postrenal obstruction versus dehydration, present on admission -- Nephrology is consulted -- They agree with need for stent placement -- Normal saline 100 mL/h -- Creatinine is currently improving Assessment #3 hyponatremia, likely chronic worsened acutely: Likely due to nutrition versus dehydration, present on admission -- Follow-up lab here showed sodium levels of 125, follow-up lab at midnight is ordered -- Urine sodium, urine osmolality, serum osmolality, TSH, cortisol, urine sodium -- Nephrology consult: The appreciate their recommendations -- Sodium levels are improving, 130 this a.m. Assessment #4 choledocholithiasis: Present admission, present on admission -- MRCP is ordered., We have no ERCP support this week end at [facility] -- GI specialist Dr. baird is contacted, he is aware we will see the patient. He assisted in reviewing the MRCP and recommends an ERCP. -- Continue hydration, clear liquid diet -- She may need an ERCP, related transfer -- Start her on Invanz renally dosed -- CBC, CMP daily, lipase daily -- Lipase is trending up on 07/29, discussed with Dr. Vasquez Assessment #5 Ileus or enterocolitis, present on admission: Likely due to pain medications -- Nothing by mouth diet -- Control nausea Assessment #6 chronic pain:, Chronic -- Patient is put on a morphine pump as cannot do by mouth pain medications -- She can have Soma however, because we do not have this on our formulary: Soma will be held going forward as she has shown symptoms of acute pancreatitis , lipase is trending up Assessment #7 hypertension, chronic -- She has no home meds -- We will continue to monitor Assessment #8 hyperlipidemia, chronic -- Continue home medication Zocor Assessment #9 osteoporosis, chronic -- Continue medication Fosamax CODE STATUS: Full code Alternate decision-maker: Avila Brown [phone] to [phone] Disposition: Transfer to [facility], for ERCP procedure to be done later today or tomorrow a.m. Exam Vital Signs (Last) Date Time Temp Pulse Resp B/P Pulse Ox O2 Delivery O2 Flow Rate FiO2 07/29/16 15:41 36.4 102 17 98/63 99 Room Air 07/28/16 16:45 10 Exam General: NAD, laying in bed, some what can appearing HEENT: NCAT, Eyes: [place] conjunctivae. No ptosis, PERRL Neck: No masses, trachea midline, no thyromegaly Lungs: CTA with normal respiratory effort, no crackles or wheezes CV: RRR, soft systolic murmur GI: Soft, flat with no hepatosplenomegaly. She states that she has right flank pain and diffuse abdominal pain. She says pain is the worst and over the epigastrium MSK: Normal gait and station, no digital cyanosis, weaker left lower extremity Skin: Warm and dry. No rash, lesions or ulcers Psych: A&O X3, with appropriate affect Test 07/28/16 14:57 07/28/16 15:04 07/29/16 03:50 07/29/16 05:00 Neutrophils (%) (Auto) 88.5% (40-74) Lymphocytes (%) (Auto) 4.1% (14-46) Monocytes (%) (Auto) 4.7% (4-12) Eosinophils (%) (Auto) 0.7% (0-5) Basophils (%) (Auto) 0.4% (0-3) Magnesium Level 2.3mg/dL (1.6-2.6) Amylase Level 15U/L (28-100) Thyroid Stimulating Hormone (TSH) 0.752uIU/mL (0.450-4.500) Cortisol 23.0ug/dL (.) Urine Osmolality 114mOs/kH2O (250-1200) Urine Random Sodium 13mEq/L Osmolality 268 (275-300) Hold Urine Received (Received) White Blood Count 20.9th/mm3 (3.8-10.1) Red Blood Count 2.84mil/mm3 (3.90-5.20) Hemoglobin 8.7g/dL (12.0-15.6) Hematocrit 25.5% (35.0-46.0) Mean Corpuscular Volume 89.8fL (81-100) Mean Corpuscular Hemoglobin 30.6pg (27.0-35.0) Mean Corpuscular Hemoglobin Concent 34.1% (32.0-37.0) Red Cell Distribution Width 17.7% (12.3-15.4) Platelet Count 605bil/L (150-400) Sodium Level 130mEq/L (134-144) Potassium Level 4.5mEq/L (3.5-5.2) Chloride Level 95mEq/L (97-108) Carbon Dioxide Level 17mmol/L (18-29) Blood Urea Nitrogen 19mg/dL (8-27) Creatinine 1.74mg/dL (0.57-1.00) Estimat Glomerular Filtration Rate 42mL/min (>59) Glucose Level 60mg/dL (60-99) Calcium Level 8.1mg/dL (8.5-10.1) Total Bilirubin 0.2mg/dL (0.0-1.2) Aspartate Amino Transf (AST/SGOT) 9U/L (0-50) Alanine Aminotransferase (ALT/SGPT) 7U/L (0-32) Alkaline Phosphatase 186U/L (25-165) Total Protein 5.7g/dL (6.4-8.4) Albumin 2.8g/dL (3.4-5.0) Test 07/29/16 11:58 Lipase 363U/L (13-60) Microbiology Results Urine cultures from 07/28 AM pending from outside Hospital [facility] Urine cultures from [facility] on 07/29 are pending The blood cultures from 07/29 from [facility] no growth to date Discharge Medications Discharge Medications Meropenem (Meropenem) 1 Gm Vial 1 GM IV Q12H Prescribed by: APARNA HUDSON DO As needed Morphine Sulfate (Morphine Sulfate 1 mg/ml Vial) 30 Mg/30 Ml Cart 0 MG IV DIRECTED PRN PRN For Pain Prescribed by: APARNA HUDSON DO Ondansetron PF (Ondansetron PF) 4 Mg/2 Ml Vial 4-8 MG IVPUSH Q4H PRN PRN For Nausea/Vomiting Prescribed by: APARNA HUDSON DO Followup Plan Follow-up plan As determined by the receiving hospital Discharge Diet: Other (NPO) Patient Instructions Patient is on NSS 100 cc/hr, meropenem 1g Q12H, Protonix IV 40 mg QDAC, morphine LABEL PRINTER for pain control with standard settings of 1 mg pt demand dose , max of 6 mg/hr, lock out time 10 min, physician loading boluses 2 mg Q10min x 3 Q4HPRN for pain control, zofran IV for nausea control. Please note that allyn's home meds are currently held. These are showing up as stopped on the reconciliation but they ar einfact, held. Patient's urine cx from [facility] are requested from 07/28, are pending at this time. Time spent One hour Aparna Hudson DO July 29, 2016 16:24
--- NOTE | 2016-07-29 17:45 | NUR ---
DISCHARGE/TRANSFER Patient made aware of MD's request to transfer patient to [place] for ERCP, which could not be done here this weekend. Patient verbalized understanding, but was overwhelmed. Provided reassurance and spouse at bedside. Patient signed consent for transfer. IV was saline locked. Report given to EMT. Patient transferred to [facility] and left facility. Gave spouse [facility] information and what room she was going to. Report called to RN at [facility]. Left with all personal belongings.
[2016-07-30] MEDS ORDERED: Pantoprazole 4 mg/mL 10 mL Inj IVPUSH SCH (07:30)
[2016-09-11] MEDS ORDERED: TRAZ-118 PO (08:42)
[2016-09-11] MEDS ORDERED: METO25TA6 PO (08:42)
[2016-09-11] MEDS ORDERED: CALC-696 PO (08:42)
[2016-09-11] MEDS ORDERED: HYDR50CA PO (08:42)
[2016-09-11] MEDS ORDERED: OXYC10TA8 PO (08:42)
[2016-09-11] MEDS ORDERED: CHOL100045 PO (08:42)
[2016-09-11] MEDS ORDERED: BISA10SU61 RC (08:42)
[2016-09-11] MEDS ORDERED: SOMA350 PO (08:42)
[2016-09-11] MEDS ORDERED: OXYC5TAB72 PO (08:42)
[2016-09-11] MEDS ORDERED: GABA600T2 PO (08:42)
[2016-09-11] MEDS ORDERED: ACET325C PO (08:42)
[2016-09-11] MEDS ORDERED: MAGN400O4 PO (08:42)
[2016-09-11] MEDS ORDERED: DEXT1DRO8 BOTH_EYES (08:42)
[2016-09-11] MEDS ORDERED: MTH10T PO (08:42)
[2016-09-11] MEDS ORDERED: ASCO250T7 PO (08:42)
[2016-09-11] MEDS ORDERED: OMEP20CA11 PO (08:42)
[2016-09-11] MEDS ORDERED: IMMODIUM A-D PO (08:42)
[2016-09-11] MEDS ORDERED: AMLO5TAB2 PO (08:42)
[2016-09-11] MEDS ORDERED: SIMV10TA4 PO (08:42)
[2016-09-11] MEDS ORDERED: DOCU-41 PO (08:42)
[2016-09-11] MEDS ORDERED: CHLO15MO3 MM (08:42)
[2016-09-11] MEDS ORDERED: OXYB5TAB10 PO (08:42)
[2016-09-11] MEDS ORDERED: FLEETS ENEMA PR (08:42)
[2016-09-11] MEDS ORDERED: ALEN70TA2 PO (08:42)
[2016-09-11] MEDS ORDERED: FERR325T6 PO (08:42)
[2016-09-11] MEDS ORDERED: SENN-133 PO (08:42)
[2016-09-11] MEDS ORDERED: HYDR25CA PO (08:42)
[2016-09-11] MEDS ORDERED: DULO60CA42 PO (08:42)
[2016-09-11] MEDS ORDERED: CHOL500050 PO (09:59)
[2016-09-11] MEDS ORDERED: [UNRECOGNIZED DRUG - CODE] PO (09:59)
[2016-09-11] MEDS ORDERED: MAGN400T23 PO (09:59)
== END 2016-07-29 17:30 | disposition short-term general hospital (02) | DRG 693 ==
LOC: OSC 10:15
PROVIDERS: ADMIT Family Medicine; ATTEND Internal Medicine
PROC: 0T768DZ Dilation of Right Ureter with Intraluminal Device, Via Natural or Artificial Opening Endoscopic (ICD-10-PCS; principal; 2016-07-28 14:00)
DX: N13.2 Hydronephrosis with renal and ureteral calculous obstruction (principal); K85.90 Acute pancreatitis without necrosis or infection, unspecified; E87.1 Hypo-osmolality and hyponatremia; N17.9 Acute kidney failure, unspecified; N39.0 Urinary tract infection, site not specified; I10 Essential (primary) hypertension; E86.0 Dehydration; G62.9 Polyneuropathy, unspecified; K21.9 Gastro-esophageal reflux disease without esophagitis; K80.50 Calculus of bile duct without cholangitis or cholecystitis without obstruction; F10.21 Alcohol dependence, in remission; G89.29 Other chronic pain; M79.7 Fibromyalgia; M81.0 Age-related osteoporosis without current pathological fracture; E78.5 Hyperlipidemia, unspecified; I73.00 Raynaud's syndrome without gangrene; Z91.81 History of falling; Z87.311 Personal history of (healed) other pathological fracture; Z79.891 Long term (current) use of opiate analgesic

== ENCOUNTER 2016-09-12 05:51 | Day surgery (SDC) | payer MEDICARE, MEDICAID ==
[2016-09-12] VITALS (25 sets, daily range): BP systolic 70–98; BP diastolic 41–75; PULSE 64–84; RESP 12–29; O2SAT 93–100
[~2016-09-12] VITALS: Ht 160.7 cm; Wt 57.8 kg
[~2016-09-12 05:51] MED LIST changes: +ACET325C PO; -ACET325T51 PO; +BISA10SU61 RC; -CALC-460 PO; +CALC-696 PO; -CARI350T PO; -CEFU500T PO; -CEPH500C PO; +CHLO15MO3 MM; +CHOL500050 PO; +DEXT1DRO8 BOTH_EYES; +DULO60CA42 PO; -DULO60CA61 PO; -ERGO2000 PO; -FERR-83 PO; +FERR325T6 PO; +FLEETS ENEMA PR; +GABA600T2 PO; -Gabapentin PO; -HYDR-3797 PO; +HYDR25CA PO; -HYDR2TAB27 PO; +HYDR50CA PO; +IMMODIUM A-D PO; +MAGN400O4 PO; +MAGN400T23 PO; +MERO1VIA IV; +OMEP20CA11 PO; +ONDA4VIA27 IVPUSH; -OXYB5TAB PO; +OXYB5TAB10 PO; +SOMA350 PO; +[UNRECOGNIZED DRUG - CODE] PO; +[UNRECOGNIZED DRUG - OTHER] IV
[2016-09-12] MEDS ORDERED: Phenylephrine/NS 100 mCg/mL 10 mL Syringe IVPUSH ONE (05:52)
[2016-09-12] MEDS ORDERED: Ondansetron 2 mg/mL 2 mL Inj ONE (05:52)
[2016-09-12] MEDS ORDERED: Propofol 10 mg/mL 20 mL Inj ONE (05:52)
[2016-09-12] MEDS ORDERED: CeFAZolin 2 Gm/50 mL D5W IV Premix IV ONE (06:00)
[2016-09-12] MEDS: Lactated Ringer's 1,000 ML IV SCH ×4 (06:40→11:07)
[2016-09-12] MEDS ORDERED: Belladonna Alk-Opium 60 mg Rectal Suppository RECTAL ONE (07:12)
--- NOTE | 2016-09-12 07:17 | PCM.HPANE ---
Patient Data Surgeon Admitting Provider: Attending Provider:Kassandra Brothers MD Primary Care Physician:Rob Reeves MD Other Provider:Thierno Hwang Anesthesia Reason for Visit Right Ureteral Stone Ht/WT & BMI Height (Feet): 5 Height (Inches): 3.25 Weight (Kilograms): 57.8 Body Mass Index 22.00 Allergies Coded Allergies: carbamazepine (Verified Allergy, Unknown, UNKNOWN, 09/11/16) amitriptyline (Verified Adverse Reaction, Unknown, AMNESIA, 09/12/16) Past Anesthesia History Anesthesia History: Denies:: Anesthesia Reactions, Malignant Hyperthermia Diabetes History Hx Diabetes?: No MRSA MRSA: Yes (Distant history of) Medications Hypertension Medication: Yes (AMLODIPINE) Home Meds Incl Beta Criss: Yes Date Beta Criss Taken: Sep 12, 2016 Time Beta Criss Taken: 0500 Active Scripts Ondansetron PF 4 Mg/2 Ml Vial4-8 Mg IVPUSH Q4H PRN For Nausea/Vomiting 7 Days Prov:Aparna Ruffin DO 07/29/16 Meropenem 1 Gm Vial1 Gm IV Q12H #10 VIAL Prov:Aparna Ruffin DO 07/29/16 Morphine Sulfate (Morphine Sulfate 1 mg/ml Vial)30 Mg/30 Ml Cart IV DIRECTED PRN For Pain 1 Day Prov:Aparna Ruffin DO 07/29/16 Reported Medications Cholecalciferol (Vitamin D3) (Vitamin D)50,000 Unit Pnljcrl53,000 Unit PO WEEKLY 09/11/16 Potassium Phosphate (K-Phos Original)500 Mg Ovvtxd665 Mg PO DAILY 30 Days 09/11/16 Magnesium Oxide (Mag-Oxide)400 Mg Sfstpp215 Mg PO BID 09/11/16 Ascorbic Acid (Vitamin C)250 Mg Tab.durd780 Mg PO TID 30 Days Ref 0 09/11/16 Trazodone 100 Mg Cczbud827 Mg PO HS Ref 0 09/11/16 Simvastatin 10 Mg Frtcnq58 Mg PO HS Ref 0 09/11/16 Sennosides (Senna)8.6 Mg Tablet8.6 Mg PO Q 2 DAYS PRN For Constipation 09/11/16 Chlorhexidine Gluconate (Peridex)15 Ml Mmoephtoy84 Ml MM DAILY 09/11/16 oxyCODONE 10 Mg Zbbehl47 Mg PO HS PRN For Pain Ref 0 09/11/16 oxyCODONE 5 Mg Tablet5 Mg PO Q4H PRN For Pain Ref 0 09/11/16 Oxybutynin Chloride 5 Mg Tablet5 Mg PO BID Ref 0 09/11/16 Omeprazole 20 Mg Capsule.dr20 Mg PO DAILY Ref 0 09/11/16 Magnesium Hydroxide (Milk of Magnesia)400 Mg/5 Ml Oral.susp30 Ml PO DAILY PRN PRN 09/11/16 Metoprolol Tartrate 25 Mg Laldaf54 Mg PO BID 30 Days Ref 0 09/11/16 Methadone 10 Mg Tab10 Mg PO BID Ref 0 09/11/16 [Immodium A-D] No Conflict Check2 Mg PO PRN 09/11/16 Hydroxyzine Pamoate (Vistaril)50 Mg Ktkrjqx90 Mg PO HS PRN For Insomnia Ref 0 09/11/16 Hydroxyzine Pamoate (Vistaril)25 Mg Czptcsk01 Mg PO QID PRN For Itching Ref 0 09/11/16 Gabapentin 600 Mg Tablet1,200 Mg PO TID Ref 0 09/11/16 [Fleets Enema] No Conflict Check1 Applic CT DAILY PRN PRN 09/11/16 Ferrous Sulfate 325 Mg Tablet.dr325 Mg PO DAILY 30 Days Ref 0 09/11/16 Bisacodyl (Dulcolax Rectal)10 Mg Supp.rect10 Mg RC DAILY PRN For Constipation 30 Days Ref 0 09/11/16 Docusate Sodium (Colace)100 Mg Ecmsgnr400 Mg PO BID PRN For Constipation Ref 0 09/11/16 Carisoprodol 350 Mg Mrbpbq141 Mg PO QID PRN For Spasm 09/11/16 Duloxetine (Cymbalta)60 Mg Capsule.dr60 Mg PO DAILY Ref 0 09/11/16 Calcium Citrate/Vitamin D2 (Daniel-Citrate Plus Vitamin D Tab)1 Each Tablet1 Each PO BID 09/11/16 Dextran 70/Hypromellose/Pf (Artificial Tears Drops)1 Each Droperette1 Drop BOTH_ EYES PRN DRY EYES #1 BOTTLE 09/11/16 Amlodipine 5 Mg Zkfhge69 Mg PO DAILY Ref 0 09/11/16 Alendronate Sodium (Fosamax)70 Mg Rhgbhg92 Mg PO WEEKLY 30 Days Ref 0 09/11/16 Acetaminophen 325 Mg Vcmznob879 Mg PO Q6H PRN PRN 09/11/16 Discontinued Reported Medications Cholecalciferol (Vitamin D3) (Vitamin D)1,000 Unit Capsule1,000 Unit PO DAILY # 1 BOTTLE Ref 0 09/11/16 History History of ENT Problems?: No HEENT History: Denies:: Cataracts Dysphagia Sinus Problem Denture Type: None Teeth Condition: Within Normal Limits Hx of Heart Problems?: Yes Cardiovascular History: Positive for:: Hypertension (HYPERLIPIDEMIA) Denies:: Cardiac Surgery Chest Pain Congestive Heart Failure Edema Heart Murmur Irregular Heartbeat Pacemaker Thrombophlebitis Other Cardiac History: 09/07/2016 H/H 9.1/26.8 Other History/Comments cardiac ROS negative, able to walk 200 feet secondary to neuropathy Hx of Respiratory Problem?: Yes Respiratory History: Positive for:: Pneumonia (HX OF) Denies:: Asthma COPD Emphysema Oxygen Administration Tuberculosis Use of C-PAP Machine Hx Neurologic Problems?: Yes Neurological History: Positive for:: Dementia (Short term mem loss) Dizziness Headaches (Past history of migraines) Denies:: Alzheimer's Disease CVA Parkinson's Disease Seizures Other Neurological Pertinent: NEUROPATHY C/OF INSOMNIA Hx of GI Problems?: Yes Other GI Pertinent History: S/P APPY Hx of Problems?: Yes Genitourinary History: Positive for:: Kidney Stones (HX PRIOR STONES RT URETERAL STONE=CURRENT PROBLEM C/OF FREQUENCY) Urinary Tract Infection Denies:: HX of Hemodialysis HX of Peritoneal Dialysis: No Other Pertinent History: S/P MUILT CYSTOS,STENT,LITHOTRIPSY Female Hx: Denies:: Currently Endometriosis Pelvic Inflammatory Problems with Breasts? Skin History: Denies:: History Skin Disorders? Pressure Ulcers Hx Musculoskeletal Problems?: Yes Musculoskeletal History: Positive for:: Back Injury Fibromyalgia Joint Replacement (L elbow) Musculoskeletal Trauma (S/P LT LE RPR HX ELBOW INJURY) Osteoarthritis (OSTEOPENIA) Hx of Psycho/Social Problems?: Yes Psycho Social History: Positive for:: Anxiety Hx Depression Denies:: Bipolar Disorder Suicide Attempt Other History/Comment Chronic pain on long standing opiods Hx Surgeries?: Yes (hyst, appy, LT LE RPR,RT ELBOW,MULT CYSTOS/STENT/ LITHOTRIPSY) Hx Any Other Health Problems?: Yes Other History: Positive for:: Hospitalization Denies:: Cancer Endocrine Disease Thyroid Disease History Blood Transfusions: Denies:: Blood Transfuse Reaction Blood Transfusions Hx Diabetes: No Hx Alcohol Use: Yes (HX OF ABUSE)Hx Substance Use: Yes (HX OF ABUSE (NARCOTICS )) Smoking Status: Current Every Day Smoker Have You Smoked inLast 12 mo: No Stop/Bang Treated for Sleep Apnea?: No Do You Have a CPAP Machine?: No S-Snoring: Do You Snore Loudly: No T-Tired: feel tired, fatigued: Yes O-Obsered: Observed not breath: No P-Blood Pressure: treated: Yes B- Body Mass Index > 35 kg/m2: No A- Age over 50: Yes N- Neck Large Circumference: No G- Gender Male: No KWASI Total Score: 3 Risk Assessment Category Category 1A: Patient has history of documented sleep apnea, and HAS NOT received any narcotic, sedative or anesthesia administration during this stay. Category 1B: Patient has history of documented sleep apnea, and HAS received any narcotic , sedative or anesthesia administration during this stay Category 2: Patient has SUSPECTED Obstructive Sleep Apnea, and HAS received any narcotic , sedative or anesthesia administration during this stay. Category 3: Patient has SUSPECTED Obstructive Sleep Apnea and HAS NOT received narcotic, sedative or anesthesia administration during this stay. Category 4: Outpatient in Procedural Areas with known sleep apnea or who screen positive for High Risk via the STOP/BANG questionnaire. Exam Exam Vital Signs Vital Signs Date Time Temp Pulse Resp B/P Pulse Ox O2 Delivery O2 Flow Rate FiO2 09/12/16 06:40 36.8 64 16 94/50 100 Room Air General Appearance: Alert, Oriented X3, Cooperative HEENT/AIRWAY: MP 2 Lungs: Clear to Auscultation, Clear to Percussion, Normal Air Movement Heart: Exam Unremarkable, Regular Rate/Rhythm, Normal S1, Normal S2 Meds/Labs/Diagnostics Admission Meds Current Medications Lactated Ringer's (Lr) 1,000 ml @ 120 mls/hr Q8H20M IV Last administered on t 06:40; Start 09/12/16 at 05:00; Stop 09/12/16 at 13:19 Plan Impression Patient chart reviewed, patient interviewed and anesthestic plan with risks, benefits, and alternatives discussed, and informed consent obtained. NPO per Anesth. Guidelines: Yes ASA Physical Status: ASA3 Severe Disease Anesthetic Plan: GA Bene/Risks/Altern/Consents: Yes HP Complete Prior to Induction: Yes Tom Cook MD Sep 12, 2016 07:17
[2016-09-12] MEDS ORDERED: levoFLOXacin 500 mg/100 mL D5W Premix IV ONE (07:36)
[2016-09-12] MEDS ORDERED: Lactated Ringer's 500 ML IV PRN (08:07)
[2016-09-12] MEDS ORDERED: Lactated Ringer's 1,000 ML IV SCH (08:07)
[2016-09-12] MEDS ORDERED: HYDROmorphone 1 mg/mL Inj IVPUSH PRN (08:10)
[2016-09-12] MEDS ORDERED: MetoCLOpramide 5 mg/mL 2 mL Inj IVPUSH PRN (08:10)
[2016-09-12] MEDS ORDERED: Ondansetron 2 mg/mL 2 mL Inj IVPUSH PRN (08:10)
[2016-09-12] MEDS ORDERED: Dexamethasone 4 mg/mL Inj IVPUSH PRN (08:10)
[2016-09-12] MEDS ORDERED: oxyCODONE-Acetamin 5-325 mg Tablet PO PRN (09:00)
[2016-09-12] MEDS ORDERED: Phenazopyridine 97.5 mg Tablet PO PRN (09:05)
--- NOTE | 2016-09-12 09:08 | PCM.SURGPO ---
Immediate Operative Note Date of Surgery: Sep 12, 2016 Pre Operative Diagnosis renal/ureteral stone Post Operative Diagnosis same Procedure R URS/LL/basket stone R JJ stent change, R RPG Surgeon and Bread Slicer Machine Surgeon: Kassandra Brothers MD Assistants: None Findings as expected Complications There were no periprocedural complications identified. Surgical Specimen Removed: Yes Specimen sent to Pathology: No (for stone analysis only) Anesthetic Administered: GA Grafts, Implants: Grafts-See Implant Record Output, Estimated Blood Loss: 10 Blood Admin during surgery: No Kassandra Brothers MD Sep 12, 2016 09:08
[2016-09-12] MEDS ORDERED: Phenylephrine/NS-PF 100 mCg/mL 5 mL Syringe IVPUSH ONE (09:10)
[2016-09-12] MEDS: Phenylephrine 10,000 mCg/mL Inj IVPUSH PRN ×2 (09:16→09:42)
[2016-09-12] MEDS: fentaNYL-PF 50 mCg/mL 2 mL Inj IVPUSH PRN ×5 (09:19→10:31)
[2016-09-12] MEDS: EPHEDrine Sulfate 50 mg/mL Inj IVPUSH PRN ×3 (10:02→10:15)
--- NOTE | 2016-09-12 10:48 | PCM.ANEP1 ---
Post Anesthesia PACU Phase 1 Assessment Vital Signs Vital Signs Date Time Temp Pulse Resp B/P Pulse Ox O2 Delivery O2 Flow Rate FiO2 09/12/16 10:40 79 18 80/52 98 Nasal Cannula 2 09/12/16 10:36 80 12 85/66 98 Nasal Cannula 2 09/12/16 10:30 80 18 87/49 98 Nasal Cannula 2 09/12/16 10:20 73 16 83/48 96 Nasal Cannula 2 09/12/16 10:16 72 13 81/50 97 Nasal Cannula 2 09/12/16 10:12 82/52 09/12/16 10:11 69 16 72/42 99 Nasal Cannula 2 09/12/16 10:00 67 15 78/45 98 Nasal Cannula 2 09/12/16 09:56 67 17 77/46 98 Nasal Cannula 2 09/12/16 09:51 68 16 83/52 98 Nasal Cannula 2 09/12/16 09:49 69 16 79/42 99 Nasal Cannula 2 09/12/16 09:40 71 16 76/41 99 Nasal Cannula 2 09/12/16 09:35 78 29 95/42 99 Nasal Cannula 2 09/12/16 09:29 77 15 84/46 95 Room Air 09/12/16 09:26 83 21 90/63 93 Room Air 09/12/16 09:20 75 19 97/66 94 Room Air 09/12/16 09:15 74 15 79/62 94 Room Air 09/12/16 09:10 74 16 70/46 94 Room Air 09/12/16 09:06 71 16 86/48 98 Room Air 09/12/16 09:01 79 18 96/75 96 Room Air 09/12/16 08:56 37.7 72 18 96/58 97 Room Air 09/12/16 06:40 36.8 64 16 94/50 100 Room Air Anesthetic Administered: GA Level of Alertness: Awake, talking GONZALEZ's with Equal Strength: Yes Pain: Yes Pain Scale Score: 6 Nausea or Vomiting: No CV Function & Hydration Stable: Yes Airway Device: Oxygen Delivery: Room Air Lungs: Clear to Auscultation, Clear to Percussion, Normal Air Movement Dermatome Level: Full Sensation Summary BP treated with fluid bolus, ephedrine and phenylephrine, at baseline prior to discharge PACU Phase 2 Assessment Complications: No Follow up Care: No Patient Instructions Provided: N/A Tom Cook MD Sep 12, 2016 10:48
--- NOTE | 2016-09-12 11:37 | DRSVH ---
PROCEDURE: X-RAY RETROGRADE UROGRAPHY INDICATIONS: C-ARM ASSISTED RIGHT STENT PLACEMENT TECHNIQUE: 2 intra-operative images acquired by the Urology service. COMPARISON: [facility], CR, XR RETROGRADE UROGRAPHY, 07/28/2016, 15:53. FINDINGS: Exam limited to 2 submitted images. Within these limits, there is only partial opacificat ion of the central portion of the right renal collecting system and a right ureteral stent is present . Prior kyphoplasty has been performed at the L3 and L5 levels. IMPRESSION: Limited exam demonstrating minimal opacification of the right renal collecting system and right ureteral stent in position. Dictated by: Caleb Thapa [facility] Interpreted: Chari Varela MD on 09/12/2016 at 9:15 Approved by: Chari Varela M.D. on 09/12/2016 at 11:35
--- NOTE | 2016-09-13 08:51 | OP ---
[address] [address] OPERATIVE REPORT PATIENT: PANCHO CRAVEN : 1950 MR#: [id number] ADMIT: 09/12/2016 JOB ID: [id number] DATE OF SURGERY: 09/12/2016 PROCEDURE: Cystoscopy with right-sided ureteroscopy, laser lithotripsy, right-sided double-J stent exchange and right-sided retrograde pyelogram. SURGEON: Kassandra Brothers M.D. ANESTHESIA: General. PREOPERATIVE DIAGNOSIS(ES): Large obstructing ureteral calculus and a large renal calculus in a 66-year-old woman previously stented. POSTOPERATIVE DIAGNOSIS(ES): Large obstructing ureteral calculus and a large renal calculus in a 66-year-old woman previously stented. INDICATIONS: The patient is a 66-year-old woman with a history of nephrolithiasis, multiple medical problems, including fibromyalgia, chronic narcotic dependence, methadone treatment, outside pain management presenting some weeks back with obstructing right ureteral calculus and large renal calculus. She was stented acutely and brought back for elective management of her ureteral calculus and ideally also her renal calculi after passive ureteral dilation and position. The patient's preop urine culture was negative. She was counseled about risks and benefits of treatment options and recommended to have a ureteroscopic procedure. PROCEDURE IN DETAIL: After appropriate informed consent was obtained, the patient was brought to the operating room. She received IV antibiotics prior to onset of the procedure. SCDs were placed. Adequate general anesthesia was induced. She was carefully placed in the dorsal lithotomy position. All pressure points carefully padded. Cleaned, prepped and draped in the usual sterile fashion. Rigid scope was introduced into the patient's bladder. The distal end of the stent was visualized, brought to the meatus. Wire was advanced through the stent up into good position in the renal pelvis. A shadow was seen at the site of the ureteral calculus as well as in the renal pelvis. The wire was left in as a safety wire. We then transitioned over to the rigid ureteroscope. We were able to maneuver this up to the level of the stone which was large, sort of cork shaped, obstructing the ureter, relatively soft, broken up with a 270 micron laser fiber. Several accounts payable representative pieces were brought out. The rest was dusted. Pieces were brought out dropped into the bladder. Once we had the ureter itself cleared, we did not feel like we lost a whole lot of stone up into the kidney. We removed the rigid scope, cleared the remainder of the ureter. Passed a second wire up. Used a 14-Micronesian outer diameter access sheath over the second wire, which was removed leaving the first wire still as a safety wire and went up with the flexible ureteroscope and inspected some large stones again outer harder shell and the inner part was reasonably soft, broken up to dust size or small fragments. Stone fragments were taken out. The remainder was dusted to 1-2 mm size and really ungraspable due to small size. Once the renal pelvis was cleared other than this to the best of our ability, we went ahead and cleared the ureter once again, removing the flexible cystoscope, then backloaded the safety wire through the rigid cystoscope and passed a 6-Micronesian x 22 cm double-J stent over the wire through the scope into good position with curl in renal pelvis, fluoroscopically and a curl in patient's bladder. Cystoscopically bladder itself was drained. Bleeding was moderate with just a little bit from the ureteral orifice. There was good efflux. The patient's bladder was irrigated out. She was drained. Given a B and O suppository, awakened, and taken in stable condition to the postanesthesia care unit.
== END 2016-09-12 23:59 | disposition home or self-care (01) ==
LOC: SAS 05:51
PROVIDERS: ATTEND Urology
DX: N20.1 Calculus of ureter (principal); N20.0 Calculus of kidney; R39.15 Urgency of urination; R35.0 Frequency of micturition; M79.7 Fibromyalgia; F11.99 Opioid use, unspecified with unspecified opioid-induced disorder; E78.5 Hyperlipidemia, unspecified; I10 Essential (primary) hypertension; F32.9 Major depressive disorder, single episode, unspecified; M85.80 Other specified disorders of bone density and structure, unspecified site; G62.9 Polyneuropathy, unspecified; G47.00 Insomnia, unspecified; D50.0 Iron deficiency anemia secondary to blood loss (chronic)
CPT/HCPCS: 52356; 74420; 82360; C2617; J2250; J2370; J2405; J3010; J7120; Q9967

== ENCOUNTER 2016-10-03 07:45 | Day surgery (SDC) | payer MEDICARE, MEDICAID ==
[~2016-10-03] VITALS: Ht 160 cm; Wt 57.3 kg
[2016-10-03] VITALS (10 sets, daily range): BP systolic 102–133; BP diastolic 53–73; PULSE 61–82; RESP 13–17; O2SAT 94–100
[~2016-10-03 07:45] MED LIST changes: +CeFAZolin 2 Gm/50 mL D5W IV Premix IV SCH; -HYDR50CA PO; +Lactated Ringer's 1,000 ML IV SCH; -MAGN400O4 PO; -MERO1VIA IV; -OMEP20CA11 PO; -ONDA4VIA27 IVPUSH; -[UNRECOGNIZED DRUG - OTHER] IV
[2016-10-03] MEDS ORDERED: MetoCLOpramide 5 mg/mL 2 mL Inj ONE (07:46)
[2016-10-03] MEDS ORDERED: Neostigmine 1 mg/mL 10 mL Inj ONE (07:46)
[2016-10-03] MEDS ORDERED: Glycopyrrolate 0.2 MG/ML 1mL Inj ONE (07:46)
[2016-10-03] MEDS ORDERED: Dexamethasone 4 mg/mL Inj ONE (07:46)
[2016-10-03] MEDS ORDERED: HYDROmorphone 1 mg/mL Inj ONE (07:46)
[2016-10-03] MEDS ORDERED: Propofol 10 mg/mL 20 mL Inj ONE (07:46)
[2016-10-03] MEDS ORDERED: Rocuronium 10 mg/mL 5 mL Inj ONE (07:46)
[2016-10-03] MEDS ORDERED: Ondansetron 2 mg/mL 2 mL Inj ONE (07:46)
[2016-10-03] MEDS ORDERED: Lactated Ringer's 1,000 ML IV ONE (08:15)
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
[2016-10-03] MEDS ORDERED: CeFAZolin Inj 2 gm / 50mL D5W IV ONE (09:06)
[2016-10-03] MEDS ORDERED: Bupivacaine-MPF 0.5% W/EPI 30 mL Inj INFILTRATE ONE (09:09)
[2016-10-03] MEDS ORDERED: Lactated Ringer's 500 ML IV PRN (09:57)
[2016-10-03] MEDS ORDERED: Lactated Ringer's 1,000 ML IV SCH (09:57)
[2016-10-03] MEDS ORDERED: Phenylephrine 10,000 mCg/mL Inj IVPUSH PRN (10:00)
[2016-10-03] MEDS ORDERED: HYDROmorphone 1 mg/mL Inj IVPUSH PRN (10:00)
[2016-10-03] MEDS ORDERED: MetoCLOpramide 5 mg/mL 2 mL Inj IVPUSH PRN (10:00)
[2016-10-03] MEDS ORDERED: Dexamethasone 4 mg/mL Inj IVPUSH PRN (10:00)
[2016-10-03] MEDS ORDERED: EPHEDrine Sulfate 50 mg/mL Inj IVPUSH PRN (10:00)
[2016-10-03] MEDS ORDERED: Ondansetron 2 mg/mL 2 mL Inj IVPUSH PRN (10:00)
--- NOTE | 2016-10-03 11:23 | DRSVH ---
PROCEDURE: X-RAY OPERATIVE CHOLANGIOGRAM ([id number]) INDICATIONS: GALLSTONE PANCREATITIS COMPARISON: , CR, XR KUB, 12/29/2015, 17:21. , CR, XR C HEST 1VW (PORTABLE), 12/27/2015, 19:31. , CT, CT KUB, 12/27/2015, 17:39. [facility], CT, KUB - CT (ABD/PEL W/O CONT), 12/07/2014, 10:51. , CT, ABD/PELVIS W/CON (PNL), 05/28/2014, 15:25. , CT, CT ABD PELVIS WO CON, 7, 6:16. , MR, MR ABD MRCP, 07/29/2016, 12:44. FINDINGS: Biliary ducts: The surgeon injected contrast into the biliary ducts after cannulation of the cystic duct stump. The intrahepatic bile ducts are normal in caliber. There is diffuse, moderate ectasia of the extrahepatic bile duct to the level of the ampulla. No intraluminal filling defects to suggest re tained ductal stones or sludge. No evidence for iatrogenic ductal injury. Duodenum: Contrast flows promptly through the sphincter of Oddi into the duodenum, which appears nor mal in caliber. IMPRESSION: 1. No filling defects to suggest retained stones. 2. Moderate, diffuse ectasia of the extrahepatic biliary tree. No intrahepatic biliary ductal dilatat ion. These findings were discussed with Dr. Marquez 11:21 AM on 10/03/16. Dictated by: Rola Womack M.D. on 10/03/2016 at 11:09 Approved by: Rola Womack M.D. on 10/03/2016 at 11:21
--- NOTE | 2016-10-03 11:34 | PCM.SURGOP ---
Surgical Operative Report Date of Service: Oct 03, 2016 Pre Operative Diagnosis Gallstone pancreatitis Post Operative Diagnosis Gallstone pancreatitis Procedure: Laparoscopic cholecystectomy, with intraoperative cholangiogram, with interpretation Surgeon and Harpoon Engagement Planning Operator: Surgeon: Indiana Marquez MD Assistants: Osmani Moffett MD; Krysten Oliveira MS3. Indication for Procedure This is a 66-year-old woman who was admitted in July for what was thought to be gallstone pancreatitis because she had an MRCP which demonstrated a filling defect. She was transferred for ERCP, however, repeat MRCP did not show this filling defect. Her pancreatitis resolved. She was thought to have had gallstone pancreatitis based on the filling defect on the initial MRCP, as well as a lack of an alternative explanation, and therefore laparoscopic cholecystectomy was indicated. Findings: 1. Moderately inflamed gallbladder with overlying adhesions. 2. Dilated common bile duct and common hepatic duct. There was a long cystic duct, no filling defects, and adequate visualization of the right and left hepatic ducts, common hepatic duct, common bile duct, with good filling of the duodenum. Procedure Details The patient was brought to the operating room and placed in supine position. General endotracheal anesthesia was smoothly induced. Antibiotics were infused. A warming blanket and SCDs were placed. A foot board was placed. The operative field was prepped and draped in sterile fashion. A pause was performed to confirm the correct patient, procedure, site, and side. A transverse 10 mm incision was made just below the umbilicus. The abdomen was entered under direct vision using a Munira port. Three additional 5 mm ports were placed in the epigastrium and right upper quadrant. The gallbladder was identified and lifted cephalad. There were moderate adhesions due to cholecystitis, and substantial pericholecystic edema. The duodenum was gently dissected off of the gallbladder. Dissection then proceeded to identify the cystic duct, cystic artery, and to expose the lower one-third of the cystic plate. Once there were two and only two structures entering the gallbladder, a clip was placed on the gallbladder side of the cystic duct. A ductotomy was made and a cholangiocatheter was inserted. A cholangiogram was performed and the cystic duct was long and patent with normal filling of the common hepatic duct, common bile duct, and right and left hepatic ducts, as noted above. The cholangiocatheter was then removed, two clips were placed on the cystic duct and it was divided. The cystic artery was clipped on both the gallbladder side and twice on the patient's side and divided. The gallbladder was then removed from its bed on the liver with electrocautery. Prior to completely removing the gallbladder, a final look was taken at the stump of the cystic artery and cystic duct, and there was no bleeding or bile leak. The gallbladder was then fully removed from the liver and placed in an EndoCatch bag and removed. The three 5 mm ports were removed under direct vision, the 10 mm mid abdominal port was removed, and a [id number] 0 PDS was used to close the fascia. There was no fascial defect at the end of the case. 0.5% Marcaine with epinephrine was infused at all port sites for postoperative analgesia. The skin was closed with subcuticular 4-0 Monocryl. Sterile dressings were placed. Sponge, instrument, and needle counts were correct at the end of the procedure. The patient was awakened from general anesthesia and taken to the postoperative care unit in good condition. Complications There were no periprocedural complications identified. Surgical Specimen Removed: Yes Specimen sent to Pathology: Yes Surgical Specimen description: Gallbladder. There were no stones in the gallbladder when it was opened on the back table. Anesthetic Plan: GA Grafts, Implants: None Output, Estimated Blood Loss: 10 (ml) Blood Administration during ly: No Idniana Marquez MD Oct 03, 2016 11:34
--- NOTE | 2016-10-03 11:34 | PCM.DISURG ---
Surgical Discharge Instruction Date of Service Oct 03, 2016 Dates of Hospitalization Date of Hospital Admission Providers Admitting Physician: Primary Care Physician: Rob Reeves MD Attending Physician: Indiana Marquez MD Diet Discharge Diet: No restrictions Activity Discharge Activity-General: Activity as pain allows, No lifting >15 pounds for 2 weeks, No driving while taking narcotic Dressing and Incisional Care Dressing Care: Allow Steri Stripes to fall off, Remove outer dressing after 24 hrs Hygiene: May shower after (24 hours) Follow Up Plan Follow Up Plan Follow up with Dr. Marquez in 10-[address] scan is obtained. Please call at any time with questions or concerns. Call your provider for: Fever, Chills, Increasing abdominal pain, Nausea, Vomiting, Wound redness, Discharge @ incision, pus discharge Bill Moffett MD Oct 03, 2016 11:34
[2016-10-03] MEDS ORDERED: oxyCODONE-Acetamin 5-325 mg Tablet PO PRN (11:35)
--- NOTE | 2016-10-03 11:43 | PCM.ANEP1 ---
Post Anesthesia PACU Phase 1 Assessment Vital Signs Vital Signs Date Time Temp Pulse Resp B/P Pulse Ox O2 Delivery O2 Flow Rate FiO2 10/03/16 11:35 75 16 106/60 98 Room Air 10/03/16 11:30 73 14 119/73 100 Simple Mask 10 10/03/16 11:25 82 14 133/53 100 Simple Mask 10 10/03/16 11:20 80 15 115/67 100 Simple Mask 10 10/03/16 08:17 36.3 61 17 108/66 99 Room Air Anesthetic Administered: GA Level of Alertness: Awake, talking Pain: No Nausea or Vomiting: No CV Function & Hydration Stable: Yes Airway Device: Lungs: Normal Air Movement PACU Phase 2 Assessment Patient Instructions Provided: N/A David Major MD Oct 03, 2016 11:42
[2016-10-03] MEDS: fentaNYL-PF 50 mCg/mL 2 mL Inj IVPUSH PRN ×2 (12:00→12:12)
--- NOTE | 2016-10-04 15:44 | PATH ---
SURGICAL PATHOLOGY Attending Physician:Indiana Marquez MD CASE STATUS: Signed Out PATIENT NAME: PANCHO CRAVEN PID: [id number] : 1950 DATE COLLECTED:10/03/2016 20:43 SPECIMEN: Gallbladder CLINICAL HISTORY: 1). GALLBLADDER FINAL DIAGNOSIS: 1.GALLBLADDER: GALLBLADDER WITH NO PATHOLOGIC ALTERATIONS. NO CALCULI IDENTIFIED. NEGATIVE FOR DYSPLASIA AND MALIGNANCY. ICD10 R10.9 GROSS DESCRIPTION: The specimen is received in one formalin filled container labeled with the patient's name, sublabeled "gallbladder" and consists of an opened 9.0 x 3.0 x 1.0 CM gallbladder. The serosa is smooth. The wall is 0.2-0.3 seen in thickness. The mucosa is a light pink stout to green stout in color. The lumen contains a light green mucoid material and no calculi are noted. 5 present in the sections are submitted in one cassette. 10/03/2016DC MICRO DESCRIPTION: See diagnosis. ICD-9 CODES: CPT CODES: 1: 29513 Electronically Signed Out Patt Barajas MD [facility] [address], [place] [address] Technical component performed at [facility], [address] [place] [address] Ave[address], [place], [address]
== END 2016-10-03 23:59 | disposition home or self-care (01) ==
LOC: SAS 07:45
PROVIDERS: ATTEND Surgery
DX: K85.10 Biliary acute pancreatitis without necrosis or infection (principal); I10 Essential (primary) hypertension; G89.4 Chronic pain syndrome; F32.9 Major depressive disorder, single episode, unspecified; M79.7 Fibromyalgia; E78.5 Hyperlipidemia, unspecified; M81.0 Age-related osteoporosis without current pathological fracture; Z87.891 Personal history of nicotine dependence
CPT/HCPCS: 47563; 74300; J0690; J1100; J1170; J1885; J2250; J2405; J2710; J2765; J3010; J7120; Q9967